=== PATIENT | female | born 1955 | race Caucasian/White ===

== ENCOUNTER 2016-09-18 19:58 | Inpatient (IN) | payer OTHER ==
[~2016-09-18] VITALS: Ht 162.6 cm; Wt 80.7 kg
--- NOTE | 2016-09-18 20:45 | ED ORDER SUMMARY ---
..... Patient: AYNELIS CUNNINGHAM OrderSheet [facility] VisitID: [id number] [place] [address] 61y, F Registration Date/Time: 09/18/2016 ORDER SHEET Weight: 74.8 kg (stated) Allergies: No Known Drug Allergy GENERAL ORDERS: CT Head wo Cont Urgent (20:14 09/18/2016 EKoroleva P.A.-C) (Ack 20:22 LMuller) (20:32 MCampbell) Humerus Right Urgent (20:15 09/18/2016 EKoroleva P.A.-C) (Ack 20:22 LMuller) (20:41 MCampbell) Cardiac Panel Stat (20:09/18/2016 EKoroleva P.A.-C) (Ack 20:22 LMuller) (20:48 JRomanelli R.N.) PT with INR Urgent (20:15 09/18/2016 EKoroleva P.A.-C) (Ack 20:22 LMuller) (20:48 JRomanelli R.N.) PTT Urgent (20:15 09/18/2016 EKoroleva P.A.-C) (Ack 20:22 LMuller) (20:48 JRomanelli R.N.) Ethyl Alcohol Urgent (20:15 09/18/2016 EKoroleva P.A.-C) (Ack 20:22 LMuller) (20:48 JRomanelli R.N.) Urine Drug Screen Urgent (20:15 09/18/2016 EKoroleva P.A.-C) (Ack 20:22 LMuller) (21:05 LMuller) Switch Cleaner (Continuous) (20:15 09/18/2016 EKoroleva P.A.-C) (Ack 20:22 LMuller) (20:48 JRomanelli R.N.) EKG - ER Stat (20:15 09/18/2016 EKoroleva P.A.-C) (Ack 20:22 LMuller) (20:48 JRomanelli R.N.) Splint (UE) (Right) (Long Arm) (21:01 09/18/2016 EKoroleva P.A.-C) (Ack 21:05 LMuller) (21:34 Madhavi) UA-Culture if indicated Urgent (21:14 09/18/2016 EKoroleva P.A.-C) (21:19 JRomanelli R.N.) MEDICATION ORDERS: Tylenol PO 1,000 mg (NOW) (22:18 09/18/2016 EKoroleva P.A.-C) (Ack 22:42 RCollier R.N.) (22:43 RCollier R.N.) IV FLUIDS: IV Saline Lock (20:15 09/18/2016 EKoroleva P.A.-C) (20:27 JRomanelli R.N.) Fentanyl IV 100 mcg (HIGH ALERT MEDICATION, NOW) (20:40 09/18/2016 EKoroleva P.A.-C) (21:37 JRomanelli R.N.) IV NS : initial bolus 1000 mL (1000 mL/hr), then 100 mL/hr for X1 (NOW); Kris (21:14 09/18/2016 EKoroleva P.A.-C) (21:20 JRomanelli R.N.) ORDER SHEET NOTES: [Electronically signed by Ana TaoANahun-C (22:23 09/18/2016)] [Electronically signed by Araeclis Helm R.N. (23:06 09/18/2016)] [Electronically locked/signed by Aracelis Helm R.N. (23:06 09/18/2016)]
--- NOTE | 2016-09-18 20:45 | ED CLINICAL REPORT ---
Clinical Report - Physicians/Mid Levels [facility] [address] [place] [address] 09/18/2016 20:01 Patient: YANELIS CUNNINGHAM Time Seen: 20:19 Sep 18 2016. Arrived- By ambulance. Historian- EMS personnel. HISTORY OF PRESENT ILLNESS Location of injuries- right arm. Chief Complaint: FALL. The injury occurred just prior to arrival. Occurred at home. The patient complains of mild pain. No blow to the head, neck pain or loss of consciousness. (Patient unsure how she fell, reports folding clothes, then does not understand any of the events that transpired. Pains of the right upper extremity. Unsure of any LOC. Reports she did not fall, was folding laundry, she has chronic neck pain and this caused her to fall.). REVIEW OF SYSTEMS No chest pain or laceration. She has no pain on weight bearing. All systems otherwise negative, except as recorded above. PAST HISTORY Problems: Abnormal Liver Function Test. Contusion. Substance Abuse. Hypokalemia. Sinusitis. Rib Fracture. Fall. Foot Fracture. Near Syncope. Arthritis. Gastroenteritis. Bronchitis. Bronchospasm. Dysuria. Palpitations. Psychosis. LNMP - Last Normal Menstrual Period. Anxiety Reaction. Dyspnea. Heart Murmur. Sleep Apnea. Hypertension. Fibromyalgia. Diabetes Mellitus. Additional Surgeries: Knee Surgery. Sinus Surgery. Medications: Ibuprofen Oral. MetFORMIN HCl Oral 500 mg, 2x a day. Allergies: No Known Drug Allergy. SOCIAL HISTORY Heavy alcohol use. (odor present in ER). ADDITIONAL NOTES The nursing notes have been reviewed. PHYSICAL EXAM Vital Signs: 09/18/2016 20:03 BP: 124/73. HR: 117. RR: 16. O2 saturation: 95%. Temp: 98.8 F. Pain level now: 9/10. Appearance: Alert. No acute distress. No backboard or C-collar. Eyes: Pupils equal, round and reactive to light. No abnormal funduscopic findings. ENT: No dental injury. No hemotympanum. Neck: Painless ROM. Non-tender. No vertebral tenderness. Posterior neck: No tenderness. CVS: Heart sounds normal. Pulses normal. Respiratory: Chest wall. No tenderness. No swelling. Breath sounds normal. Chest nontender. No chest wall injury. Abdomen: No visible injury. Nontender. No mass. No abdominal tenderness. Back: No tenderness. ROM normal. No tenderness. Skin: Skin warm. Extremities: Normal inspection. No abrasions. Right arm: deformity consistent with a humerus fracture, moderate tenderness and swelling and medium sized ecchymosis located in the lateral aspect of arm. Neurovascular intact distally. No laceration, puncture wound or foreign body. Pelvis stable. Neuro: Altered mental status. Eyes open spontaneously. Best verbal response: disoriented. Best motor response: localizes to pain. LABS, X-RAYS, AND EKG Rt Humerus X-ray: (IMPRESSION: 1. Impacted, minimally comminuted, displaced mid to distal humeral diaphyseal fracture. 2. Nondisplaced oblique transverse proximal humeral diaphyseal fracture. 3. Probable punctate fracture of the elbow adjacent to the coronoid process. 4. No dislocation. Electronically Final signed by:Nay Dallas MD 09/18/2016 9:48:44 PM). CT Head: (IMPRESSION: 1. No CT evidence of acute intracranial process. 2. Findings discussed with Dinh at [address] scans at this facility use dose modulation, iterative reconstruction, and/or weight-based dosing when appropriate to reduce radiation dose to as low as reasonably achievable. Electronically Final signed by:Nay Dallas MD 09/18/2016 9:44:46 PM). Laboratory Tests: UA-Culture if indicated: (YUNG: 09/18/2016 20:55) ( MsgRcvd 09/18/2016 21:29) Final results Test Result Flag Units (Reference) URINE COLOR YELLOW URINE APPEARANCE CLEAR URINE GLUCOSE NEGATIVE (NEGATIVE) URINE BILIRUBIN NEGATIVE (NEGATIVE) URINE KETONE NEGATIVE (NEGATIVE) URINE SPECIFIC GRAVITY >= 1.030 (1.010-1.030) URINE PH 5.5 (5.0-8.0) URINE PROTEIN 1+ (NEGATIVE) URINE UROBILINOGEN 0.2 EU/dL (0.2-1.0) URINE NITRITE NEGATIVE (NEGATIVE) URINE BLOOD 2+ (NEGATIVE) URINE LEUK ESTERASE NEGATIVE (NEGATIVE) URINE RBC NONE SEEN rbc/hpf (0-1) URINE WBC 0-1 wbc/hpf (0-1) URINE EPITHELIAL CELLS 0-1 EPI/hpf (0-5) URINE BACTERIA NONE SEEN (NONE SEEN) URINE COMMENT CULT NOT INDICATED 1+ AMORPHOUSURINE CULTURES ARE SET-UP BASED ON THE FOLLOWING CRITERIA:POSITIVE NITRITEPOSITIVE LEUKOCYTE ESTERASEGREATER THAN 10 WHITE BLOOD CELLSMODERATE (2+) OR GREATER BACTERIA CBC w Diff: (YUNG: 09/18/2016 20:35) ( [facility] 09/18/2016 21:13) Final results Test Result Flag Units (Reference) WHITE BLOOD COUNT 17.3 H K/uL (4.5-11.5) RED BLOOD COUNT 3.66 L M/uL (4.00-5.20) HEMOGLOBIN 11.2 L gm/dL (12.0-16.0) HEMATOCRIT 33.1 L % (36.0-46.0) MEAN CELL VOLUME 90 fL (80-100) MEAN CORPUSCULAR HGB 31 pg (26-34) MEAN CORPUSCULAR HGB CONC 34 g/dL (31-37) RED CELL DISTRIBUTION WIDTH 13.0 % (11.6-14.8) PLATELET COUNT 294 K/uL (150-400) NEUTROPHIL % 89.9 H % (50-75) LYMPH % 5.5 L % (25-40) MONO % 4.5 % (3-14) EOSINOPHIL % 0 % (0-4) BASOPHIL % 0.1 % (0-2) PT with INR: (YUNG: 09/18/2016 20:35) ( [facility] 09/18/2016 21:24) Final results Test Result Flag Units (Reference) INR 0.9 (0.8-1.2) Low Intensity Therapy: INR 1.5-2.0 PT range 18.5-23.1Mod.Intensity Therapy: INR 2.0-3.0 PT range 23.1-31.5High Intensity Therapy: INR 2.5-3.5 PT range 27.4-35.5High Intensity Therapy 2: INR 3.0-4.0 PT range 31.5-39.3 APTT 21 L SECONDS (24-34) Urine Drug Screen: (YUNG: 09/18/2016 20:55) ( ScgRcvd 09/18/2016 21:31) Final results Test Result Flag Units (Reference) AMPHETAMINE/METHAMPHETAMINE NEGATIVE (NEGATIVE) BARBITURATE NEGATIVE (NEGATIVE) BENZODIAZEPINE NEGATIVE (NEGATIVE) CANNABINOID POSITIVE H (NEGATIVE) COCAINE NEGATIVE (NEGATIVE) ECSTASY NEGATIVE (NEGATIVE) METHADONE NEGATIVE (NEGATIVE) OPIATE NEGATIVE (NEGATIVE) The urine drug screen is a qualitative screening test fordrug overdose and abuse. All screen results should beconsidered as presumptive.Drugs screened for are as follows:BenzodiazepinesCocaineAmphetamines/MetamphetaminesTHC (Tetrahydrocannabinol)OpiatesBarbituratesEcstasyMethadonePositive results are unconfirmed. For confirmation, notifythe lab for the specimen to be sent to the reference lab.All confirmations must be performed by a differentmethodology.The ingestion of natural herbal and plant productscontaining Ephedra/Ephedra metabolites can produce in urineone or more substances capable of cross reacting withamphetamine/methamphetamine immunoassays. These testsprovide a preliminary result only. A more specificalternative chemical method must be used to obtain aconfirmed analytical result. Ethyl Alcohol: (YUNG: 09/18/2016 20:35) ( [facility] Final results Test Result Flag Units (Reference) ETHYL ALCOHOL 186 H mg/dL (3-10) CHEM 13 PANEL: (YUNG: 09/18/2016 20:35) ( ScgRcvd 09/18/2016 21:38) Final results Test Result Flag Units (Reference) GLUCOSE 171 H mg/dL (70-110) BUN 21 H mg/dL (7-18) CREATININE 0.7 mg/dL (0.6-1.3) Estimated GFR >60 mL/min Estimated GFR- >60 mL/min Note: Persistent reduction over 3 months in eGFR<60 mL/min/1.73 m2 defines CKD. Patients with eGFR values>=60 mL/min/1.73 m2 may also have CKD if evidence ofpersistent proteinuria. Additional information may be foundat www.kidney.org. SODIUM 136 mmol/L (136-145) POTASSIUM 3.8 mmol/L (3.5-5.1) CHLORIDE 100 mmol/L (98-107) CARBON DIOXIDE 22 mmol/L (21-32) CALCIUM 9.1 mg/dL (8.5-10.1) TOTAL PROTEIN 7.0 g/dL (6.4-8.2) ALBUMIN 4.1 g/dL (3.3-5.0) BILIRUBIN, TOTAL 0.2 mg/dL (0.0-1.0) ALKALINE PHOSPHATASE 66 U/L (46-116) AST (SGOT) 31 U/L (15-37) ALT (SGPT) 36 U/L (12-78) CPK 482 H U/L (24-260) MAGNESIUM 1.7 L mg/dL (1.8-2.4) CK-MB 13.3 H ng/mL (0.5-3.2) %CKMB 2.8 % (0.0-4.0) TROPONIN I <0.05 ng/mL (0.00-1.5) TROPONIN REFERENCE RANGE:<0.1 NEGATIVE0.1-1.5 INDETERMINANT>1.5 POSITIVE . PROGRESS AND PROCEDURES Splint Application: Time: 22:21 Sep 18 2016. Fiberglass long arm splint applied to right upper extremity. Splint applied by tech with direct supervision by me. Reassessed extremity following splint application. Neurovascular intact. Follow-up recommended for tomorrow. Course of Care: Patient is unclear how her injury occurred. She is intoxicated. In fact she denies any fall. She has been told multiple times that she has a broken arm in the emergency department, her on mature she comprehensive nature of such. No other signs of trauma. Case was discussed with orthopedics, who will see her in the emergency Department. Orthopedics , Dr. Hutchins requested medical consult, given her diabetes and hypertension history, we'll obtain social Dr. Conn him, also in the emergency department to see the patient. She spiked a fever in the emergency department, given Tylenol. Signs of leukocytosis, no otherwise clear sign of cause of her fever. 09/18/2016 22:00 BP: 129/77. HR: 108. RR: 16. O2 saturation: 94%. Temp: 101.6 F. Pain level now: 02/18. Patient is stable. Symptoms better. Patient/family counseled. Disposition: Admitted. CLINICAL IMPRESSION R. Closed Displaced Mid Shaft Humerus Fx ETOH DM 2 Fever. (Electronically signed by Ana Tao P.A.-C 09/18/2016 22:23) Addenda for YANELIS CUNNINGHAM VisitID: [id number] Date: 09/18/2016 09/18/2016 22:25 EKG: Vent rate 108 Pr interval [address] changes or elevation Sinus Tach (Electronically signed by Ana Tao P.A.-C - 09/18/2016 22:25)
--- NOTE | 2016-09-18 20:45 | ED ORDER SUMMARY ---
..... Patient: YANELIS CUNNINGHAM OrderSheet [facility] VisitID: [id number] [place] [address] 61y, F Registration Date/Time: 09/18/2016 ORDER SHEET Weight: 74.8 kg (stated) Allergies: No Known Drug Allergy GENERAL ORDERS: CT Head wo Cont Urgent (20:14 09/18/2016 EKoroleva P.A.-C) (Ack 20:22 LMuller) (20:32 MCampbell) Humerus Right Urgent (20:15 09/18/2016 EKoroleva P.A.-C) (Ack 20:22 LMuller) (20:41 MCampbell) Cardiac Panel Stat (20:09/18/2016 EKoroleva P.A.-C) (Ack 20:22 LMuller) (20:48 JRomanelli R.N.) PT with INR Urgent (20:15 09/18/2016 EKoroleva P.A.-C) (Ack 20:22 LMuller) (20:48 JRomanelli R.N.) PTT Urgent (20:15 09/18/2016 EKoroleva P.A.-C) (Ack 20:22 LMuller) (20:48 JRomanelli R.N.) Ethyl Alcohol Urgent (20:15 09/18/2016 EKoroleva P.A.-C) (Ack 20:22 LMuller) (20:48 JRomanelli R.N.) Urine Drug Screen Urgent (20:15 09/18/2016 EKoroleva P.A.-C) (Ack 20:22 LMuller) (21:05 LMuller) Mobile Health Vehicle Operator (Continuous) (20:15 09/18/2016 EKoroleva P.A.-C) (Ack 20:22 LMuller) (20:48 JRomanelli R.N.) EKG - ER Stat (20:15 09/18/2016 EKoroleva P.A.-C) (Ack 20:22 LMuller) (20:48 JRomanelli R.N.) Splint (UE) (Right) (Long Arm) (21:01 09/18/2016 EKoroleva P.A.-C) (Ack 21:05 LMuller) (21:34 Madhavi) UA-Culture if indicated Urgent (21:14 09/18/2016 EKoroleva P.A.-C) (21:19 JRomanelli R.N.) MEDICATION ORDERS: Tylenol PO 1,000 mg (NOW) (22:18 09/18/2016 EKoroleva P.A.-C) (Ack 22:42 RCollier R.N.) (22:43 RCollier R.N.) IV FLUIDS: IV Saline Lock (20:15 09/18/2016 EKoroleva P.A.-C) (20:27 JRomanelli R.N.) Fentanyl IV 100 mcg (HIGH ALERT MEDICATION, NOW) (20:40 09/18/2016 EKoroleva P.A.-C) (21:37 JRomanelli R.N.) IV NS : initial bolus 1000 mL (1000 mL/hr), then 100 mL/hr for X1 (NOW); Kris (21:14 09/18/2016 EKoroleva P.A.-C) (21:20 JRomanelli R.N.) ORDER SHEET NOTES: [Electronically signed by Ana TaoANahun-C (22:23 09/18/2016)] [Electronically signed by Aracelis Helm R.N. (23:06 09/18/2016)] [Electronically locked/signed by Aracelis Helm R.N. (23:06 09/18/2016)]
--- NOTE | 2016-09-18 20:45 | ED CLINICAL REPORT ---
Clinical Report - Physicians/Mid Levels [facility] [address] [place] [address] 09/18/2016 20:01 Patient: YANELIS CUNNINGHAM Time Seen: 20:19 Sep 18 2016. Arrived- By ambulance. Historian- EMS personnel. HISTORY OF PRESENT ILLNESS Location of injuries- right arm. Chief Complaint: FALL. The injury occurred just prior to arrival. Occurred at home. The patient complains of mild pain. No blow to the head, neck pain or loss of consciousness. (Patient unsure how she fell, reports folding clothes, then does not understand any of the events that transpired. Pains of the right upper extremity. Unsure of any LOC. Reports she did not fall, was folding laundry, she has chronic neck pain and this caused her to fall.). REVIEW OF SYSTEMS No chest pain or laceration. She has no pain on weight bearing. All systems otherwise negative, except as recorded above. PAST HISTORY Problems: Abnormal Liver Function Test. Contusion. Substance Abuse. Hypokalemia. Sinusitis. Rib Fracture. Fall. Foot Fracture. Near Syncope. Arthritis. Gastroenteritis. Bronchitis. Bronchospasm. Dysuria. Palpitations. Psychosis. LNMP - Last Normal Menstrual Period. Anxiety Reaction. Dyspnea. Heart Murmur. Sleep Apnea. Hypertension. Fibromyalgia. Diabetes Mellitus. Additional Surgeries: Knee Surgery. Sinus Surgery. Medications: Ibuprofen Oral. MetFORMIN HCl Oral 500 mg, 2x a day. Allergies: No Known Drug Allergy. SOCIAL HISTORY Heavy alcohol use. (odor present in ER). ADDITIONAL NOTES The nursing notes have been reviewed. PHYSICAL EXAM Vital Signs: 09/18/2016 20:03 BP: 124/73. HR: 117. RR: 16. O2 saturation: 95%. Temp: 98.8 F. Pain level now: 9/10. Appearance: Alert. No acute distress. No backboard or C-collar. Eyes: Pupils equal, round and reactive to light. No abnormal funduscopic findings. ENT: No dental injury. No hemotympanum. Neck: Painless ROM. Non-tender. No vertebral tenderness. Posterior neck: No tenderness. CVS: Heart sounds normal. Pulses normal. Respiratory: Chest wall. No tenderness. No swelling. Breath sounds normal. Chest nontender. No chest wall injury. Abdomen: No visible injury. Nontender. No mass. No abdominal tenderness. Back: No tenderness. ROM normal. No tenderness. Skin: Skin warm. Extremities: Normal inspection. No abrasions. Right arm: deformity consistent with a humerus fracture, moderate tenderness and swelling and medium sized ecchymosis located in the lateral aspect of arm. Neurovascular intact distally. No laceration, puncture wound or foreign body. Pelvis stable. Neuro: Altered mental status. Eyes open spontaneously. Best verbal response: disoriented. Best motor response: localizes to pain. LABS, X-RAYS, AND EKG Rt Humerus X-ray: (IMPRESSION: 1. Impacted, minimally comminuted, displaced mid to distal humeral diaphyseal fracture. 2. Nondisplaced oblique transverse proximal humeral diaphyseal fracture. 3. Probable punctate fracture of the elbow adjacent to the coronoid process. 4. No dislocation. Electronically Final signed by:Nay Dallas MD 09/18/2016 9:48:44 PM). CT Head: (IMPRESSION: 1. No CT evidence of acute intracranial process. 2. Findings discussed with Dinh at [address] scans at this facility use dose modulation, iterative reconstruction, and/or weight-based dosing when appropriate to reduce radiation dose to as low as reasonably achievable. Electronically Final signed by:Nay Dallas MD 09/18/2016 9:44:46 PM). Laboratory Tests: UA-Culture if indicated: (YUNG: 09/18/2016 20:55) ( MsgRcvd 09/18/2016 21:29) Final results Test Result Flag Units (Reference) URINE COLOR YELLOW URINE APPEARANCE CLEAR URINE GLUCOSE NEGATIVE (NEGATIVE) URINE BILIRUBIN NEGATIVE (NEGATIVE) URINE KETONE NEGATIVE (NEGATIVE) URINE SPECIFIC GRAVITY >= 1.030 (1.010-1.030) URINE PH 5.5 (5.0-8.0) URINE PROTEIN 1+ (NEGATIVE) URINE UROBILINOGEN 0.2 EU/dL (0.2-1.0) URINE NITRITE NEGATIVE (NEGATIVE) URINE BLOOD 2+ (NEGATIVE) URINE LEUK ESTERASE NEGATIVE (NEGATIVE) URINE RBC NONE SEEN rbc/hpf (0-1) URINE WBC 0-1 wbc/hpf (0-1) URINE EPITHELIAL CELLS 0-1 EPI/hpf (0-5) URINE BACTERIA NONE SEEN (NONE SEEN) URINE COMMENT CULT NOT INDICATED 1+ AMORPHOUSURINE CULTURES ARE SET-UP BASED ON THE FOLLOWING CRITERIA:POSITIVE NITRITEPOSITIVE LEUKOCYTE ESTERASEGREATER THAN 10 WHITE BLOOD CELLSMODERATE (2+) OR GREATER BACTERIA CBC w Diff: (YUNG: 09/18/2016 20:35) ( [facility] 09/18/2016 21:13) Final results Test Result Flag Units (Reference) WHITE BLOOD COUNT 17.3 H K/uL (4.5-11.5) RED BLOOD COUNT 3.66 L M/uL (4.00-5.20) HEMOGLOBIN 11.2 L gm/dL (12.0-16.0) HEMATOCRIT 33.1 L % (36.0-46.0) MEAN CELL VOLUME 90 fL (80-100) MEAN CORPUSCULAR HGB 31 pg (26-34) MEAN CORPUSCULAR HGB CONC 34 g/dL (31-37) RED CELL DISTRIBUTION WIDTH 13.0 % (11.6-14.8) PLATELET COUNT 294 K/uL (150-400) NEUTROPHIL % 89.9 H % (50-75) LYMPH % 5.5 L % (25-40) MONO % 4.5 % (3-14) EOSINOPHIL % 0 % (0-4) BASOPHIL % 0.1 % (0-2) PT with INR: (YUNG: 09/18/2016 20:35) ( [facility] 09/18/2016 21:24) Final results Test Result Flag Units (Reference) INR 0.9 (0.8-1.2) Low Intensity Therapy: INR 1.5-2.0 PT range 18.5-23.1Mod.Intensity Therapy: INR 2.0-3.0 PT range 23.1-31.5High Intensity Therapy: INR 2.5-3.5 PT range 27.4-35.5High Intensity Therapy 2: INR 3.0-4.0 PT range 31.5-39.3 APTT 21 L SECONDS (24-34) Urine Drug Screen: (YUNG: 09/18/2016 20:55) ( [facility] 09/18/2016 21:31) Final results Test Result Flag Units (Reference) AMPHETAMINE/METHAMPHETAMINE NEGATIVE (NEGATIVE) BARBITURATE NEGATIVE (NEGATIVE) BENZODIAZEPINE NEGATIVE (NEGATIVE) CANNABINOID POSITIVE H (NEGATIVE) COCAINE NEGATIVE (NEGATIVE) ECSTASY NEGATIVE (NEGATIVE) METHADONE NEGATIVE (NEGATIVE) OPIATE NEGATIVE (NEGATIVE) The urine drug screen is a qualitative screening test fordrug overdose and abuse. All screen results should beconsidered as presumptive.Drugs screened for are as follows:BenzodiazepinesCocaineAmphetamines/MetamphetaminesTHC (Tetrahydrocannabinol)OpiatesBarbituratesEcstasyMethadonePositive results are unconfirmed. For confirmation, notifythe lab for the specimen to be sent to the reference lab.All confirmations must be performed by a differentmethodology.The ingestion of natural herbal and plant productscontaining Ephedra/Ephedra metabolites can produce in urineone or more substances capable of cross reacting withamphetamine/methamphetamine immunoassays. These testsprovide a preliminary result only. A more specificalternative chemical method must be used to obtain aconfirmed analytical result. Ethyl Alcohol: (YUNG: 09/18/2016 20:35) ( [facility] Final results Test Result Flag Units (Reference) ETHYL ALCOHOL 186 H mg/dL (3-10) CHEM 13 PANEL: (YUNG: 09/18/2016 20:35) ( Tx[facility]cv[facility] 09/18/2016 21:38) Final results Test Result Flag Units (Reference) GLUCOSE 171 H mg/dL (70-110) BUN 21 H mg/dL (7-18) CREATININE 0.7 mg/dL (0.6-1.3) Estimated GFR >60 mL/min Estimated GFR- >60 mL/min Note: Persistent reduction over 3 months in eGFR<60 mL/min/1.73 m2 defines CKD. Patients with eGFR values>=60 mL/min/1.73 m2 may also have CKD if evidence ofpersistent proteinuria. Additional information may be foundat www.kidney.org. SODIUM 136 mmol/L (136-145) POTASSIUM 3.8 mmol/L (3.5-5.1) CHLORIDE 100 mmol/L (98-107) CARBON DIOXIDE 22 mmol/L (21-32) CALCIUM 9.1 mg/dL (8.5-10.1) TOTAL PROTEIN 7.0 g/dL (6.4-8.2) ALBUMIN 4.1 g/dL (3.3-5.0) BILIRUBIN, TOTAL 0.2 mg/dL (0.0-1.0) ALKALINE PHOSPHATASE 66 U/L (46-116) AST (SGOT) 31 U/L (15-37) ALT (SGPT) 36 U/L (12-78) CPK 482 H U/L (24-260) MAGNESIUM 1.7 L mg/dL (1.8-2.4) CK-MB 13.3 H ng/mL (0.5-3.2) %CKMB 2.8 % (0.0-4.0) TROPONIN I <0.05 ng/mL (0.00-1.5) TROPONIN REFERENCE RANGE:<0.1 NEGATIVE0.1-1.5 INDETERMINANT>1.5 POSITIVE . PROGRESS AND PROCEDURES Splint Application: Time: 22:21 Sep 18 2016. Fiberglass long arm splint applied to right upper extremity. Splint applied by tech with direct supervision by me. Reassessed extremity following splint application. Neurovascular intact. Follow-up recommended for tomorrow. Course of Care: Patient is unclear how her injury occurred. She is intoxicated. In fact she denies any fall. She has been told multiple times that she has a broken arm in the emergency department, her on mature she comprehensive nature of such. No other signs of trauma. Case was discussed with orthopedics, who will see her in the emergency Department. Orthopedics , Dr. Hutchins requested medical consult, given her diabetes and hypertension history, we'll obtain social Dr. Conn him, also in the emergency department to see the patient. She spiked a fever in the emergency department, given Tylenol. Signs of leukocytosis, no otherwise clear sign of cause of her fever. 09/18/2016 22:00 BP: 129/77. HR: 108. RR: 16. O2 saturation: 94%. Temp: 101.6 F. Pain level now: 02/18. Patient is stable. Symptoms better. Patient/family counseled. Disposition: Admitted. CLINICAL IMPRESSION R. Closed Displaced Mid Shaft Humerus Fx ETOH DM 2 Fever. (Electronically signed by Ana Tao P.A.-C 09/18/2016 22:23) Addenda for YANELIS CUNNINGHAM VisitID: [id number] Date: 09/18/2016 09/18/2016 22:25 EKG: Vent rate 108 Pr interval [address] changes or elevation Sinus Tach (Electronically signed by Ana Tao P.A.-C - 09/18/2016 22:25)
--- NOTE | 2016-09-18 20:45 | ED NURSING NOTES ---
Clinical Report - Nurses [facility] [place] [address] 09/18/2016 20:01 Patient: YANELIS CUNNINGHAM [facility]#: [id number] TRIAGE Triage time 20:00 Sep 18 2016. Acuity: LEVEL 3. Chief Complaint: INJURY TO THE RIGHT ARM. Alert. YVONNE COMA SCORE: [place] Coma Scale: 15- eyes open spontaneously (4); best verbal response- oriented x 4 (5); best motor response- obeys commands (6). --20:15 Doug Rowan R.N. 20:03 09/18/16. BP: 124/73. HR: 117. RR: 16. O2 saturation: 95%. Temp: 98.8 F (oral). Pain level now: 9/10. Additional comments: (R) Upper Arm. --20:15 Doug Rowan R.N. Weight: 74.8 kg stated. Height/Length: 64 inches Per Patient. BMI: 28.3. --20:06 Doug Rowan R.N. Medications Ibuprofen Oral. MetFORMIN HCl Oral 500 mg, 2x a day. --20:10 Doug Rowan R.N. Allergies No Known Drug Allergy. --20:10 Doug Rowan R.N. Medication/allergy information source: the patient. --20:15 Doug Rowan R.N. History Arrived by EMS. Historian: patient. Unaccompanied. Primary physician (Tiffany Etienne). ( GLF falling upstairs and hitting her RUE). This occurred (about 1 hour ago). Mechanism of injury: fell. She has had neck pain and weakness of the right arm. 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 PAST MEDICAL HX: Tetanus status: unknown. Immunizations: status is unknown. SOCIAL HX: Light tobacco smoker (cigarette)- less than 1/2 a pack per day. Alcohol use; consumes two liquor occasionally. No drug use. No infectious disease exposure. ABUSE ASSESSMENT: No report of abuse. FALL RISK ASSESSMENT: Fall risk assessment completed. No fall risk identified. NUTRITIONAL RISK ASSESSMENT: The nutritional risk assessment revealed no deficiencies. FUNCTIONAL ASSESSMENT: Functional assessment: no impairments noted. LEARNING NEEDS ASSESSMENT: The learning needs assessment revealed no barriers. SKIN INTEGRITY ASSESSMENT: Skin integrity risk assessment completed. No skin integrity risk identified. --20:15 Doug Rowan R.N. PROBLEMS: Abnormal Liver Function Test. Contusion. Substance Abuse. Hypokalemia. Sinusitis. Rib Fracture. Fall. Foot Fracture. Near Syncope. Dental Caries. Arthritis. Gastroenteritis. Bronchitis. Bronchospasm. Dysuria. Palpitations. Psychosis. LNMP - Last Normal Menstrual Period. Anxiety Reaction. Dyspnea. Heart Murmur. Sleep Apnea. Hypertension. Fibromyalgia. Diabetes Mellitus. --20:12 Doug Rowan R.N. Abdominal Pain [RuleOut]. UTI - Urinary Tract Infection [RuleOut]. --20:12 Doug Rowan R.N. ADDITIONAL SURGERIES: Knee Surgery. Sinus Surgery. --20:12 Doug Rowan R.N. Interventions ID band on patient. To treatment room. --20:15 Doug Rowan R.N. PHYSICAL ASSESSMENT Ambulatory to room. GENERAL / NEURO / PSYCH: Oriented X 4. Alert. EXTREMITIES: Limited ROM present in the right upper arm. Capillary refill is less than 2 seconds in the extremities. Extremity pulses are within normal limits. Right arm: tenderness (painful). SKIN: Skin intact. Skin is warm and dry. --20:16 Doug Rowan R.N. SKIN: ( Bruise lateral (R) leg below the knee). --20:17 Doug Rowan R.N. NURSING PROGRESS NOTES 20:02 09/18/2016 Site #1 started prior to arrival by EMS via IV in the left with an 20g angiocath. --20:27 Doug Rowan R.N. 20:20 09/18/16. Patient transported to radiology and CT by stretcher with tech. --20:26 Doug Rowan R.N. 20:40 09/18/16. Patient ID band checked for patient name, birthdate and medical record number: patient confirmed. Blood samples drawn from the left forearm peripheral IV site by nurse ; labeled in presence of the patient and sent to lab: rainbow set. Line flushed with 10 mL normal saline post blood draw. --20:46 Doug Rowan R.N. 20:15. Cold pack applied. Reassurance given. Patient identifiers checked. Call light placed in reach. Side rails up x 1. Bed placed in lowest position. Brakes of bed on. Patient ready for evaluation- chart flagged and ED physician notified. --20:47 Doug Rowan R.N. EKG time: (2040 PM). EKG was ordered, performed by a tech and shown to the PA. --20:50 María Lanier ( 2044: Breathalyzer .167). --20:53 María Lanier 21:20 09/18/2016 Started bag #1 1000 mL IV Fluids IV NS (Saline); at 1000 mL/hr over 60 minute(s) via site #1 via IV pump. Allergies verified and confirmed 5 rights. IV patency established. IV site checked: no pain, redness, or swelling. IV flushed thoroughly pre- and post-medication administration. --21:20 Doug Rowan R.N. 21:25 09/18/16. ( Splint placed on RUE by Dr. Hutchins). --21:32 Doug Rowan R.N. 21:27 09/18/2016 Fentanyl IVP 50 mcg given over 2 minute(s) via site #1. Allergies verified, confirmed 5 rights and sedative warning given. IV patency established. IV site checked: no pain, redness, or swelling. IV flushed thoroughly pre- and post-medication administration. IVP given by RN. --21:37 Doug Rowan R.N. 21:38 09/18/2016 Fentanyl IVP 50 mcg given over 2 minute(s) via site #1. Allergies verified, confirmed 5 rights and sedative warning given. IV patency established. IV site checked: no pain, redness, or swelling. IV flushed thoroughly pre- and post-medication administration. IVP given by RN. --21:38 Doug Rowan R.N. 21:00 09/18/16. BP: 127/87. HR: 105. RR: 16. O2 saturation: 96% on room air. Pain level now: 8/10. Additional comments: RUE pain. --22:09 Doug Rowan R.N. 22:00 09/18/16. BP: 129/77. HR: 108. RR: 16. O2 saturation: 94% on room air. Temp: 101.6 F. Pain level now: 02/18. Additional comments: RUE pain. --22:16 Doug Rowan R.N. 22:10 09/18/16. ( Up to BSC and voided ~ 100cc.). --22:16 Doug Rowan R.N. 22:37 09/18/16. BP: 115/55. HR: 118. RR: 15. O2 saturation: 97%. Pain level now: 03/20. --22:39 Sary Barnhart R.N. 22:30 09/18/2016 Tylenol (Acetaminophen) PO Tablets 1000 mg given. Allergies verified and confirmed 5 rights. (given by Doug Urban, RN). --22:43 Rebekah Ramos R.N. DISPOSITION / DISCHARGE Report was given to a nurse via a phone call. Report included patient's care, treatment, medications, reviewed medication reconcilliation, and condition (including any recent changes or anticipated changes). All questions were answered. Report was acknowledged and care was transferred. --22:49 Amaya Jenkins Departure time: 23:03. FALL RISK ASSESSMENT: Fall risk assessment completed. No fall risk identified. --23:03 Amaya Jenkins Transported via stretcher by transport team. --23:03 Amaya Jenkins 23:05 09/18/16. BP: deferred. HR: deferred. RR: deferred. O2 saturation: deferred. Temp: deferred. Pain level now deferred. --23:05 Amaya Jenkins Locked/Released at 09/18/2016 23:06 by Amaya Jenkins
--- NOTE | 2016-09-18 21:43 | Progress Note ---
Subjective General Closed fracture right humerus. Patient is intoxicated and does not know what happened to herself. She thinks she has DM and HTN and is on Metformin only. She is admitted for repair of the right humeral fracture and detoxification/BS control.
--- NOTE | 2016-09-18 21:44 | DIAGNOSTIC IMAGING REPORT ---
PROCEDURE: CT HEAD WITHOUT CONTRAST INDICATION: MENTAL STATUS CHANGE TECHNIQUE: Axial CT images were acquired through the head. Coronal and sagittal reformations were created. COMPARISON: None. FINDINGS: There is patient motion at the base of the brain. No intracranial hemorrhage or extraaxial fluid collections. Ventricles are normal in size, shape and position. There is no mass, mass effect or midline shift. The daugherty-white matter differentiation is normal. There is no edema. The calvarium is intact. Mild right maxillary sinus mucoperiosteal thickening. The paranasal sinuses and mastoid air cells are otherwise normally aerated. The extracranial soft tissues and orbits are normal. IMPRESSION: 1. No CT evidence of acute intracranial process. 2. Findings discussed with Dinh at [address] scans at this facility use dose modulation, iterative reconstruction, and/or weight-based dosing when appropriate to reduce radiation dose to as low as reasonably achievable.
--- NOTE | 2016-09-18 21:48 | DIAGNOSTIC IMAGING REPORT ---
PROCEDURE: XR HUMERUS - RIGHT INDICATION: TRAUMA/INJURY TECHNIQUE: Two views of the right humerus COMPARISON: None. FINDINGS: Normal mineralization. There is a minimally comminuted, mainly oblique transverse fracture through the mid to distal right humerus with one a half full shaft width of posterior and lateral displacement, and about to 1/2 cm of impaction. There is also a nondisplaced oblique transverse fracture of the proximal humeral diaphysis. The elbow joint appears grossly normal alignment with a tiny ossification adjacent to the coronoid process, potentially an impaction fracture. The shoulder joint is also grossly normally aligned. No radiodense foreign bodies in the soft tissue. IMPRESSION: 1. Impacted, minimally comminuted, displaced mid to distal humeral diaphyseal fracture. 2. Nondisplaced oblique transverse proximal humeral diaphyseal fracture. 3. Probable punctate fracture of the elbow adjacent to the coronoid process. 4. No dislocation.
--- NOTE | 2016-09-18 23:07 | ED DISCHARGE INSTRUCTIONS ---
Patient: YANELIS CUNNINGHAM General Instructions [facility] VisitID: [id number] [address] [place] [address] 61y, F Registration Date/Time: 09/18/2016 R. Closed Displaced Mid Shaft Humerus Fx ETOH DM 2 Fever. (Electronically signed by Ana Tao P.A.-C 09/18/2016 22:23)
--- NOTE | 2016-09-18 23:07 | ED MAR SUMMARY ---
..... Medication Administration Record [facility] [address] [place] [address] Patient: YANELIS CUNNINGHAM Visit ID: [id number] 61y, F Weight: 74.8 kg Height/Length: 64 in BMI: 28.3 ALLERGIES: No Known Drug Allergy Start 21:20 09/18/2016 Doug Rowan R.N. Medication Administered: IV NS (SALINE), Dose: IV Fluids over 60 minute(s), Rate: 1000 mL/hr, Dispensed: 1000 mL bag, Site: #1 left. Medication Ordered: IV NS : initial bolus 1000 mL (1000 mL/hr), then 100 mL/hr for X1 (NOW); Kris. Given 21:27 09/18/2016 Doug Rowan R.N. Medication Administered: FENTANYL [IVP], Dose: 50 mcg IVP over 2 minute(s), Site: #1 left. Medication Ordered: Fentanyl IV 100 mcg (HIGH ALERT MEDICATION, NOW). Given 21:38 09/18/2016 Doug Rowan R.N. Medication Administered: FENTANYL [IVP], Dose: 50 mcg IVP over 2 minute(s), Site: #1 left. Medication Ordered: Fentanyl IV 100 mcg (HIGH ALERT MEDICATION, NOW). Given 22:30 09/18/2016 Rebekah Ramos R.N. Medication Administered: TYLENOL [PO] (ACETAMINOPHEN), Dose: 1000 mg Tablets PO. Medication Ordered: Tylenol PO 1,000 mg (NOW).
--- NOTE | 2016-09-18 23:07 | ED MAR SUMMARY ---
..... Medication Administration Record Located Within [facility] [address] [place] [address] Patient: YANELIS CUNNINGHAM Visit ID: [id number] 61y, F Weight: 74.8 kg Height/Length: 64 in BMI: 28.3 ALLERGIES: No Known Drug Allergy Start 21:20 09/18/2016 Doug Rowan R.N. Medication Administered: IV NS (SALINE), Dose: IV Fluids over 60 minute(s), Rate: 1000 mL/hr, Dispensed: 1000 mL bag, Site: #1 left. Medication Ordered: IV NS : initial bolus 1000 mL (1000 mL/hr), then 100 mL/hr for X1 (NOW); Kris. Given 21:27 09/18/2016 Doug Rowan R.N. Medication Administered: FENTANYL [IVP], Dose: 50 mcg IVP over 2 minute(s), Site: #1 left. Medication Ordered: Fentanyl IV 100 mcg (HIGH ALERT MEDICATION, NOW). Given 21:38 09/18/2016 Doug Rowan R.N. Medication Administered: FENTANYL [IVP], Dose: 50 mcg IVP over 2 minute(s), Site: #1 left. Medication Ordered: Fentanyl IV 100 mcg (HIGH ALERT MEDICATION, NOW). Given 22:30 09/18/2016 Rebekah Ramos R.N. Medication Administered: TYLENOL [PO] (ACETAMINOPHEN), Dose: 1000 mg Tablets PO. Medication Ordered: Tylenol PO 1,000 mg (NOW).
--- NOTE | 2016-09-18 23:07 | ED DISCHARGE INSTRUCTIONS ---
Patient: YANELIS CUNNINGHAM General Instructions Located Within [facility] VisitID: [id number] [address] [place] [address] 61y, F Registration Date/Time: 09/18/2016 R. Closed Displaced Mid Shaft Humerus Fx ETOH DM 2 Fever. (Electronically signed by Ana Tao P.A.-C 09/18/2016 22:23)
--- NOTE | 2016-09-18 23:07 | ED MED RECONCILIATION SUMMARY ---
Patient: YANELIS CUNNINGHAM Medication Reconciliation Report [facility] VisitID: [id number] [address] [place] [address] 61y, F Registration Date/Time: 09/18/2016 Weight: 74.8 kg Height/Length: 64 in. BMI: 28.3 ALLERGIES: No Known Drug Allergy The patient's Home Medications are listed below: THE FOLLOWING MEDICATIONS NEED TO BE RECONCILED: Ibuprofen Oral MetFORMIN HCl Oral 500 mg, 2x a day The source(s) of the original Home Medication information: patient The following Medications were given to the patient in the Emergency Department: IV NS IV Fluids bolus 0, then 1000 mL/hr, administered: 09/18/2016 9:20:00 PM Fentanyl [IVP] IVP 50 mcg, administered: 09/18/2016 9:27:00 PM Fentanyl [IVP] IVP 50 mcg, administered: 09/18/2016 9:38:00 PM Tylenol [PO] PO 1000 mg, administered: 09/18/2016 10:30:00 PM The following Medications were prescribed to the patient: None.
--- NOTE | 2016-09-18 23:07 | ED MED RECONCILIATION SUMMARY ---
Patient: YANELIS CUNNINGHAM Medication Reconciliation Report [facility] VisitID: [id number] [address] [place] [address] 61y, F Registration Date/Time: 09/18/2016 Weight: 74.8 kg Height/Length: 64 in. BMI: 28.3 ALLERGIES: No Known Drug Allergy The patient's Home Medications are listed below: THE FOLLOWING MEDICATIONS NEED TO BE RECONCILED: Ibuprofen Oral MetFORMIN HCl Oral 500 mg, 2x a day The source(s) of the original Home Medication information: patient The following Medications were given to the patient in the Emergency Department: IV NS IV Fluids bolus 0, then 1000 mL/hr, administered: 09/18/2016 9:20:00 PM Fentanyl [IVP] IVP 50 mcg, administered: 09/18/2016 9:27:00 PM Fentanyl [IVP] IVP 50 mcg, administered: 09/18/2016 9:38:00 PM Tylenol [PO] PO 1000 mg, administered: 09/18/2016 10:30:00 PM The following Medications were prescribed to the patient: None.
[2016-09-18 23:09] VITALS: BP 117/63
[2016-09-19] VITALS (13 sets, daily range): BP systolic 111–151; BP diastolic 57–99
--- NOTE | 2016-09-19 02:27 | NUR ---
PT. ARRIVED TO FLOOR AT APPROX 2300 AT SHIFT CHANGE, RECEIVED REPORT FROM ISAAC KEYS. ACCORDING TO REPORT, PT. WALKED FROM STRETCHER TO BED. WHEN THIS RN ASSESSED PT., PT. WAS SHOUTING IN PAIN EVERY TIME SHE MOVED IN BED. PT. IS INTOXICATED PER FAMILY, ANSWERING STAFF QUESTIONS BUT IS NOT ABLE TO FOCUS AND RAMBLES. BLOOD ETOH LEVEL IS HIGH PER LABS. PT HAS MULTIPLE BRUISES ON RAMAKRISHNA, AND MULTIPLE RED GARCIA ON SHINS BILAT. PT. STATES SHE FELL AT HOME. STATES, "THIS HAPPENS ALL THE TIME. I FALL ALL THE TIME." IS CURRENTLY A POOR HISTORIAN, WHILE COMPLETING ADMISSION DATABASE PT. STATES "I DONT REMEMBER" TO MANY QUESTIONS. PT. R ARM IS IN A SPLINT ON HER UPPER ARM AND EXTENDS TO ELBOW. ADMINISTERED DILAUDID PER DR PARIS, PT. STATES HER PAIN WENT FROM 10/10 TO 7/10. PT. BECAME VERY NAUSEOUS FROM PAIN AND VOMITED, BUT DENIES NAUSEA AT THIS TIME. NOTIFIED DR. SELLERS OF PAIN, PAIN MEDICATION FREQUENCY INCREASED. PT. UNABLE TO MOVE IN BED TO ALLOW FOR BED ROGER, AND WHILE WALKING TO TOILET EARLIER SHE BECAME EXTREMELY PAINFUL. PER DR SELLERS, OK TO INSERT LAZO CATHETER, SINCE PT. WILL BE HAVING SURGERY. ICE TO ARTI, ELEVATED ON PILLOW. WCTM.
--- NOTE | 2016-09-19 02:56 | HISTORY AND PHYSICAL ---
ADMITTED: 09/18/2016 CHIEF COMPLAINT: 1. Pain in the right upper arm area HISTORY OF PRESENT ILLNESS: The patient is a 61-year-old white female who fell at home this evening. She was involved with a sewing project and was trying to get this done fairly quickly. She had also been drinking some alcohol. She has some chronic neck problems as well and sometimes certain neck problems for one reason or other trigger balance difficulties. In any case, she fell and impacted on her right upper arm. She had severe pain and could not really move very well. She called 911 and was transferred into the hospital here in [place]. Evaluation in the emergency department revealed that she had quite high blood alcohol level at 186 mg percent. X-ray showed a transverse displaced fracture of the midshaft area of the humerus. Dr. Hutchins had seen the patient and had recommended surgery and admission for stabilization prior to surgery. MEDICAL/SURGICAL HISTORY: Past medical history: Remarkable for adult-onset diabetes, hyperlipidemia, hypertension, chronic neck pain, fibromyalgia, spells of weakness and balance difficulties, which have been related to her neck. She also was evaluated for sleep apnea issues in the past, but the decision was that she did not really have sleep apnea. Past surgical history is remarkable for left knee surgery and sinus surgery. She also has had childbirth x2. MEDICATIONS: 1. Metformin 500 mg twice daily. 2. She is also on a blood pressure medication of some type and it sounds like it may be either an CB inhibitor or an ARB. She cannot remember the name completely. She has been sensitive to statin medications and is not on a statin medication currently. ALLERGIES: 1. DENTAL ANESTHETICS, WHICH CAUSES QUITE PRONOUNCED TACHYCARDIA. SHE IS UNSURE WHICH ANESTHETIC SHE S ALLERGIC TO. IT MAY BE THAT SHE IS ALLERGIC TO THE TYPE THAT HAS EPINEPHRINE IN THEM. SOCIAL HISTORY: Indicates the patient is . She has worked at a variety of jobs and most recently at [employer]. 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 She is currently disabled from working. She is and is currently living with her son. She does smoke 6-7 cigarettes per day. She drinks occasional alcohol and it seems that when she drinks, she drinks a fair amount. She also smokes marijuana or uses marijuana in some form occasionally. FAMILY HISTORY: Remarkable for a father who at age 56 of an acute myocardial infarction. The patient was 11 years old at that time. The patient's mother at age 73 of pancreatic cancer. REVIEW OF SYSTEMS: HEENT is okay. Respiratory is okay with no history of asthma problems. Cardiovascular is okay. The patient does have a history of heart murmur but this has not been found to be hemodynamically significant. Gastrointestinal: Okay with no nausea, vomiting or diarrhea, hematemesis or melena. Genitourinary is okay with no major problems passing urine. Musculoskeletal: Remarkable for right upper arm pain, as noted above related to the fracture. She is not noticing any numbness in her hands. Neurologic has been okay with no major weakness or other problems, though she does have ongoing neck pain and balance problems related to her neck. Skin is remarkable for some bruises on the lower legs from falls. CODE STATUS: THE PATIENT WISHES TO BE A FULL CODE. PHYSICAL EXAMINATION: GENERAL: Reveals the patient to be a white female, appearing to be of her stated age. VITAL SIGNS: Temperature is 98. Pulse is 117. Blood pressure is 117/63. Oxygen saturation is 95%. She is alert and oriented x3 and answers questions fairly appropriately, though at times she speaks rather disconnectedly. HEENT: Head is normal. Ear canals and tympanic membranes are normal. Eyes show pupils equal, round, and reactive to light with normal extraocular movements. Fundi show no obvious hemorrhages or exudates. Nose and throat are clear. The patient does have some missing teeth. NECK: Supple without significant adenopathy. CHEST: Clear to auscultation and percussion. BREASTS: Show no masses. There is no axillary adenopathy. HEART: Reveals normal S1 and S2 with a grade 2/6 systolic murmur along the left sternal border. There is no diastolic murmur. ABDOMEN: Nontender, nondistended. Bowel tones are normal. There is no guarding. There is no organomegaly. PELVIC AND RECTAL: Not done. EXTREMITIES: Show the right upper arm to be immobilized in a posterior splint. This area iis quite painful when she attempts to move her arm much. SKIN: Okay except for some ecchymotic areas on the right lower leg just below the knee laterally and on the left anterior lower leg area. NEUROLOGIC: Reveals the patient to be alert and oriented x3. Cranial nerves are okay. Motor and sensory exams are generally intact. LAB/IMAGING: CT scan is normal with no evidence of intracranial bleeding or other abnormalities. X-rays of the right upper forearm show a transverse fracture of the mid shaft of the humerus with significant displacement and slight overlapping. There does seem to be a butterfly fragment. White blood cell count to be 17,300, hemoglobin is 11.2, hematocrit is 33. Sodium is 136, potassium 3.8, chloride 100, CO2 of 22, glucose 171, BUN 21, creatinine 0.7. Protime INR 0.9. PTT is 21. EKG shows a sinus tachycardia with no other acute abnormalities. There is some slight T-wave inversion in aVL. IMPRESSION: 1. The patient is presenting with a transverse displaced fracture of the mid shaft of the right humerus, which will require open reduction and internal fixation. This should be able to be done tomorrow. The patient also is showing alcohol intoxication and may have a history of alcohol abuse. 2. Other problems include adult-onset diabetes. 3. Questionable history of hypertension. 4. Questionable history of hyperlipidemia. 5. She also has chronic neck pain and some neurologic issues associated with this including balance difficulties. She shows evidence of mild anemia. PLAN: The patient is admitted and will be placed on intravenous fluids overnight and will remain n.p.o. She will have blood sugars done before meals and at bedtime and will have sliding scale administered as needed using the Humalog insulin. Additionally, she will have a chest x-ray done prior to surgery. Additionally she will also continue with hydromorphone intravenously for pain control. CBC and electrolytes will be checked in the morning prior to surgery. She also will have a chest x-ray done in the morning to make sure no significant abnormalities are present.
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
--- NOTE | 2016-09-19 05:24 | NUR ---
PT. IS AWAKE IN BED, REQUESTING PAIN MEDICATION FREQUENTLY. OK PER DR. SELLERS TO ADMINISTER PERCOCET PO WITH SIPS OF WATER. DILAUDID ADMINISTERED, PT. STATES IT IS SOMEWHAT EFFECTIVE BUT IF SHE MOVES VERY MUCH THEN HER PAIN BECOMES SEVERE AGAIN. PT. IS DROWSY, DOZES OFF WHILE TALKING. END TIDAL C02 MONITOR ON. TM.
--- NOTE | 2016-09-19 07:17 | DIAGNOSTIC IMAGING REPORT ---
PROCEDURE: XR CHEST 1 VIEW INDICATION: Preop right humeral fracture. TECHNIQUE: Portable AP view ([id number] hours). COMPARISON: Compared to chest x-ray and 12/11/2015. FINDINGS: Lungs are clear. Heart and mediastinum are normal. Thorax is normal. IMPRESSION: 1. Negative chest.
--- NOTE | 2016-09-19 07:45 | Progress Note ---
Subjective General Patient alert, sober this am. C/O moderate pain. Afeb WBC 7.3 Hgb 9.8 NMV intact and splint in place. Mild edema. Plan for repair today.
--- NOTE | 2016-09-19 07:47 | Preoperative Progress Note ---
Late Entry Date/Time Late Entry Date and Time LATE ENTRY Date of visit: Time of visit: Preop Note Details Current Status: Changes (Sober. I was able to explain ) Current Status Changes: I was able to explain the procedure to her this am and she would like to have the surgery done. Plan for repair of the fracture today. Physical Exam: No Changes Necessity: Still desired/necessary Other: CV Reviewed, Respiratory Reviewed, Review [facility] notes & Vitals
--- NOTE | 2016-09-19 08:14 | Progress Note ---
Subjective General Patient is feeling well this am. Pain improved with dilaudid. She denies other pain. She states that she tripped and fell. She states that she can do all her grocery shopping without stopping to rest. No chest pain, SOB, abd pain, nausea , or vomitting. No other pain. Physical Exam Vital Signs / I&Os Vital Signs Date Time Temp Pulse Resp B/P Pulse O2 O2 Flow FiO2 Ox Delivery Rate 09/19 0727 36.8 87 18 131/82 92 Room Air 0.0 09/19 0224 36.8 107 18 130/63 93 Room Air 09/18 2309 36.8 117 18 117/63 95 Room Air I&O 09/19 0000 09/18 1600 09/18 0800 Intake Total 450 Output Total Balance 450 General Appearance Alert, Cooperative, No acute distress Lungs Clear to auscultation, Normal air movement Cardiovascular Regular rate and rhythm, Normal S1 and S2, holosystolic murmur increased at the base. Abdomen Normal bowel sounds, Soft, No tenderness Extremities No edema, RUE with splint Assessment and Plan Problem List 1. Right humeral fracture Plan Ortho conulted. Per report, plan for surgery this afternoon. Cleared for surgery. ASA 2. 2. Diabetes Plan On ISS. Will add-on HgbA1C 3. Hypertension Plan Will call MD / pharmacy for name and dose of home medication. 4. Hypomagnesemia Plan Replacing 5. Alcohol abuse Plan Receiving banana bag today. On ETOH withdrawal protocol. 6. Anemia Plan Decreased today as compared to yesterday. Likely dilutional 2/2 IVF. Will repeat later this am.
--- NOTE | 2016-09-19 09:25 | NUR ---
RECEIVED PT IN BED, IN ROOM 202. ALERT, ORIENTED, COHERENT, COOPERATIVE. V/S TAKEN AND RECORDED. ASSESSMENT DONE. PT COMPLAINT OF CHEST AND BACK PAIN " SORE AND ACHE WHEN I COUGH" PT STATES. DENIES CHEST PRESSURE AT THIS TIME. PT TOLERATED HER MEALS GOOD. DAUGHTER WILL BRING PT'S OWN MEDICATION TODAY. KEPT PT WARM. H/H IS 8.2/ 24.4. DENIES DIZZINESS AT THIS TIME. " WHEN I GET UP, I FEEL A LITTLE WEAK" PT STATES.
[2016-09-19] MEDS ORDERED: LIPITOR80 MG PO (10:56)
[2016-09-19] MEDS ORDERED: CITALOPRAM HYDR40 MG PO (10:58)
[2016-09-19] MEDS ORDERED: ENALAPRIL MALE2.5 MG PO (10:59)
[2016-09-19] MEDS ORDERED: CYCLOBENZAPRINE10 MG PO (10:59)
[2016-09-19] MEDS ORDERED: METFORMIN HCL500 MG PO (11:00)
[2016-09-19] MEDS ORDERED: TRAMADOL HCL50 MG PO (11:01)
--- NOTE | 2016-09-19 14:45 | NUR ---
PT WENT TO SURGERY VIA [facility].
--- NOTE | 2016-09-19 16:01 | NUR ---
MULTIPLE RED/BLUE BRUISES OVER ENTIRE BODY. OF NOTE: LARGE ONE AROUND RIGHT KNEE LEFT ARM
--- NOTE | 2016-09-19 16:07 | NUR ---
sYNTHES 3.2mm GUIDE WIRE 400mm (503.000) x2 USED HUMERAL MARIKA IMPLANT.
--- NOTE | 2016-09-19 16:26 | Postoperative Progress Note ---
Postop Progress Note Preoperate Diagnosis: Fracture right humerus Postoperative Diagnosis: Same Surgeon: Socrates Hutchins MD Anesthesia: General ETT Findings: Unstable fracture right humerus Procedure: Percutaneous IM rodding of right huerus fracture Complications? No Condition: Stable EBL: 5cc Blood Administered: 0 Specimen(s) removed? No Grafts or Implants? Yes Graft/Implant type: Two 06/18" IM rods right humerus. . (See nursing notes for details of grafts/implants)
--- NOTE | 2016-09-19 16:55 | DIAGNOSTIC IMAGING REPORT ---
PROCEDURE: XR FLUOROSCOPY OVER 1 HOUR INDICATION: Surgery for right humerus fracture. TECHNIQUE: C-arm fluoroscopy was provided to Dr. Hutchins for intraoperative surgical procedure. Fluoroscopy time 4 minutes (20.1 mGy). AP and lateral C-arm views. COMPARISON: Comparison made to preoperative radiographs of the right humerus on 09/18/2016. FINDINGS: There has been reduction of a comminuted multipart fracture of the mid and proximal shaft of the right humerus which is transfixed with two intramedullary rods/pins. There is one fourth bone width of ventral displacement of the major distal fragment with a moderately displaced fragment near the midshaft. There is a nondisplaced comminuted fracture of the proximal shaft of the right humerus. IMPRESSION: 1. Open reduction and internal fixation of comminuted fracture of the mid and proximal shaft, right humerus with mild residual displacement of fracture fragments.
--- NOTE | 2016-09-19 16:59 | NUR ---
PT RECEIVED TO PACU SEDATED, EXCITED ON AROUSING AND SHIVERING MILDLY. SHIVERING RELIEVED WITH NEIDA HUGGER WARMER. REPORTS 8/10 PAIN ON AWAKENING, MEDICATED WITH FENTANYL IV FOR PAIN. DENIES NAUSEA. BP HIGH.
--- NOTE | 2016-09-19 17:30 | NUR ---
PT MORE AWAKE AND TALKATIVE. REQUIRES REMINDERS TO DEEP BREATHE AND COUGH. VSS, WITH BP HIGHER THAN DOCUMENTED BASELINE. NO URINE OUTPUT PER [facility] CATHETER IN PACU, ANESTHESIA PROVIDER NOTIFIED.
--- NOTE | 2016-09-19 17:42 | NUR ---
PT AWAKE AND MODERATELY COMFORTABLE. VSS.
--- NOTE | 2016-09-19 19:21 | NUR ---
PT ARRIVED AROUND 1830 VIA GURNEY FROM THE PACU. C/O PAIN IN RIGHT ARM AT 5/10 BUT KEPT FALLING ASLEEP. PT WAS NAUSEOUS WHEN MOVING TO BED, ANTI-EMETIC GIVEN AND PT IS FEELING MUCH BETTER PER PT. 1PERSON ASSIST WHEN AMBULATING. ARM DRESSINGS ARE C/D/I. SLING IS ON. VSS. NICOTINE PATCH ORDERED AND PLACED. RESTING W/ CALL LIGHT IN REACH.
--- NOTE | 2016-09-19 19:28 | OPERATIVE REPORT ---
DATE OF SURGERY: 09/19/2016 SURGEON: LOREN ROBLES MD PREOPERATIVE DIAGNOSIS: 1. Unstable comminuted fracture of the right humerus POSTOPERATIVE DIAGNOSIS: 1. Unstable comminuted fracture of the right humerus PROCEDURE PERFORMED: Operation proposed was repair of the right humeral fracture and the operation performed was a percutaneous intramedullary rodding of the right humeral fracture. CONDITION: She is in stable condition. ESTIMATED BLOOD LOSS: About 5 mL. COMPLICATIONS: None. PATHOLOGY SPECIMEN: Sent to the lab were none. SURGICAL TECHNIQUE: The patient was taken to the operating room. She was given general anesthetic. She was placed in a beach chair position on the operating table with the C-arm fluoroscopy device coming in from the opposite side and the arm was then prepped and draped in the usual sterile fashion. We made 2 small incisions proximally, anterior and posterior on the greater tuberosity of the humerus and through these and we put two 8 inch rods, bending the tip of the kaylie just a little bit and starting at the greater tuberosity, going through the intramedullary canal and with fluoroscopic visualization, we were able to line up the fracture adequately to pass the rods across the fracture site, doing the first one and then bearing it in the greater tuberosity of the humerus and then doing a second one and likewise bearing it so it was not protruding. This was accomplished without difficulty. The incisions were closed with #3-0 Vicryl subcuticular suture and they were dressed with Xeroform and sterile cotton gauze, which was taped securely in place. At the conclusion of the procedure the patient's major fracture fragments were nicely aligned and the fracture was stable. There is a butterfly fragment that is displaced, but because of the stability of the main fracture fragments and also because of my concerns about the patient's ability to cooperate and to care for her wound I would be most concerned about her having an open reduction of that fragment and repair of it and also she had fairly significant ecchymosis, at least 3+, over the area of the fracture site that had developed by the time we got to her today and there is a real concern about the wounds healing with her relatively poor health, diabetes and alcohol abuse and so this seemed the best compromise with the fracture stabilized. She did not tolerate well with the splint that we put on last night and it was not holding the fracture aligned well either and so this seemed the best compromise and with this the fracture is stable or at least the major fracture fragments are stable and aligned well. She is taken to the recovery room.
[2016-09-20] VITALS (12 sets, daily range): BP systolic 100–155; BP diastolic 56–99
--- NOTE | 2016-09-20 06:54 | NUR ---
R SHOULDER DRESSING CDI, SLING IN PLACED, STATES ABLE TO SLEEP AFTER LORAZEPAM.
--- NOTE | 2016-09-20 07:25 | Progress Note ---
Subjective General Patient with itching last night after surgery. Benadryl given with improvement. Still using dilaudid for pain however, more for her neck pain than her arm pain. No BM, nausea, abdominal pain. Taking po well per nursing. Physical Exam Vital Signs / I&Os Vital Signs Date Time Temp Pulse Resp B/P Pulse O2 O2 Flow FiO2 Ox Delivery Rate 09/20 0658 36.9 76 20 132/72 96 Nasal 2.0 Cannula 09/20 0225 37.6 88 13 119/71 98 Nasal 1.5 Cannula 09/20 0154 84 12 139/84 95 1.5 09/19 2257 94 16 95 1.5 09/19 2247 37.8 89 13 139/85 97 Nasal 1.5 Cannula 09/19 2105 102 13 111/57 96 Nasal 3.0 Cannula 09/19 2009 102 16 141/76 96 3.0 09/19 1945 36.9 105 16 141/76 96 Nasal 3.0 Cannula 09/19 1915 102 16 135/76 04 1850 89 16 135/78 96 Nasal 4.0 Cannula 09/19 1833 100 14 151/82 97 Nasal 4.0 Cannula 09/19 1816 102 14 150/86 95 Nasal 4.0 Cannula 09/19 1800 Nasal 3.0 Cannula 09/19 1758 36.8 94 11 140/74 93 Nasal 4.0 Cannula 09/19 1735 37.2 89 13 149/84 95 Nasal 4.0 Cannula 09/19 1730 94 13 148/80 92 Nasal 4.0 Cannula 09/19 1725 96 14 150/78 94 Nasal 4.0 Cannula 09/19 1720 98 14 161/80 94 Nasal 4.0 Cannula 09/19 1715 100 15 148/85 96 Mask 8.0 04/11 1710 96 15 163/78 98 Mask 8.0 04/11 1705 107 14 168/87 99 Mask 8.0 04/11 1700 100 12 164/101 100 Mask 8.0 04/11 1655 104 14 171/91 100 Mask 8.0 04/11 1650 103 16 172/91 94 Mask 8.0 04/ 1645 108 18 152/96 98 Mask 8.0 04/11 1640 101 16 178/100 96 Mask 8.0 04/ 1635 98 16 181/95 94 Mask 8.0 04/ 1630 99 15 173/86 93 Mask 8.0 09/19 1625 36.4 102 16 162/77 92 Mask 8.0 09/19 1430 36.9 84 10 139/99 94 09/19 1136 36.9 82 18 129/77 97 Room Air 0.0 09/19 1113 79 12 95 09/19 0925 Room Air 0.0 09/19 0818 16 93 09/19 0727 36.8 87 18 131/82 92 Room Air 0.0 I&O 09/20 0000 09/19 1600 09/19 0800 Intake Total 1702 1670 1071 Output Total 385 300 775 Balance 1317 1370 296 General Appearance Alert, No acute distress Lungs Clear to auscultation, Normal air movement Cardiovascular Regular rate and rhythm, Normal S1 and S2, No murmurs, gallops, rubs Abdomen Normal bowel sounds, Soft, No tenderness Extremities No edema, RUE in sling Assessment and Plan Problem List 1. Right humeral fracture Plan POD #1. Will attempt to transition from IV pain meds to po today. Ortho consulted. 2. Alcohol abuse Plan Scores increasing. Will continue to monitor. 3. Diabetes Plan On ISS. 4. Hypertension Plan Will restart home meds. 5. Hypomagnesemia Plan Replaced. 6. Anemia Plan Slight decrease after surgery yesterday.
--- NOTE | 2016-09-20 09:44 | Progress Note ---
Subjective General Moderate pain. Bandages are clean and dry, She has mild edema at the shoulder and fracture site. 2+ radial pulse. Fingers warm and pink. She has no active extension of the wrist and fingers. Sensation is present and unchanged in the 1st dorsal web space and throughout the hand distally. She has active flexion of the fingers and they are warm and pink. Compartments are all soft. Plan: Exploration of radial nerve to see if it is entrapped in the fracture site. The problem was explained to the patient and I recommended exploration of the nerve. She agrees and accepts. We will do the durgery later today.
--- NOTE | 2016-09-20 14:11 | NUR ---
PT LEFT FOR OR AT 1345, LEFT IN HER BED SO UNABLE TO CHANGE SHEETS WHILE SHE IS GONE
--- NOTE | 2016-09-20 15:27 | Postoperative Progress Note ---
Postop Progress Note Preoperate Diagnosis: Radial nerve palsy Postoperative Diagnosis: Same Surgeon: Socrates Hutchins MD Anesthesia: General ETT Findings: Radial nerve anterior to the major humeral shaft segments and between the burterfly fragment and the shaft of the humerus. Nerve was in continuity. Procedure: Exploration of the right radial nerve Complications? No Condition: Stable EBL: <50cc Blood Administered: 0 Specimen(s) removed? No Grafts or Implants? No . (See nursing notes for details of grafts/implants)
--- NOTE | 2016-09-20 15:42 | NUR ---
PT IS AWAKE AND ALERT. PT DENIES PAIN IN HER RIGHT ARM, BUT STATES CHRONIC NECK PAIN. VSS. RIGHT ARM IS ELEVATED ON A PILLOW, ARM IS IN ARM SLING. DRESSING IS CLEAN AND DRY. MD TALKED TO PT IN PACU. QUESTIONS ENCOURAGED AND ANSWERED.
--- NOTE | 2016-09-20 16:06 | OPERATIVE REPORT ---
DATE OF SURGERY: 09/20/2016 SURGEON: LOREN ROBLES MD PREOPERATIVE DIAGNOSES: 1. Radial nerve palsy 2. Right humeral fracture POSTOPERATIVE DIAGNOSES: 3. Radial nerve palsy 4. Right humeral fracture PROCEDURE PERFORMED: 1. The operation proposed was exploration of the right radial nerve, and the operation performed was exploration of the right radial nerve ESTIMATED BLOOD LOSS: Less than 50 mL. COMPLICATIONS: None. PATHOLOGY SPECIMEN: None. SURGICAL TECHNIQUE: The patient was taken to the operating room. She was given a general anesthetic. The arm and shoulder and base of neck were all prepped and draped in the usual sterile fashion. She then had a longitudinal incision made just lateral to the biceps muscle and carried down through subcutaneous tissue. The deep fascia was incised in line with its fibers, and we just bluntly dissected down to the bone. The patient's radial nerve was easily identified, and in fact it was anterior to the shaft of the humerus, and between the 2 major shaft fragments and the butterfly fragment that she had when she fractured the bone. The bone itself was nicely aligned. I just bluntly dissected free the butterfly fragment and removed it. The nerve itself was not kinked; it was not stretched; it was not under undue tension, and, while not in its anatomic position posterior to the radius, it was in position where there was no reason to think that it would not recover and, rather than take the fracture apart to move it posteriorly, back into its anatomic position, we just left it there. The patient had closure of the wound after irrigating with sterile saline. We used 2-0 Polysorb subcutaneous and then a running 3-0 Polysorb subcuticular skin closure. She was injected along the incision line with 0.5% Marcaine, about 10 mL. Dressed with Xeroform at both the shoulder incisions and also the arm incision, and ABDs were placed over the arm incision. She was wrapped with an Osbaldo bandage loosely applied, and at the shoulder 4 x 4 inch gauze placed over the incisions and then was taped securely in place. The incisions there actually were clean and dry and healing very nicely. There was no erythema, drainage or anything there and they looked good. The patient is being awakened. She will be taken to the recovery room. She is in stable condition.
--- NOTE | 2016-09-20 16:24 | NUR ---
PATIENT NOTIFIED AT 0800 THAT SHE WILL NPO AND HAVE ANOTHER SURGERY TODAY, BECAME AGGITATED AROUND 1100 STATING THAT SHE NEEDS TO EAT AND HAVE A CIGARETTE AND WANTS THE SURGERY ANOTHER DAY, OFFERED NICOTINE PATCH (SHE REFUSED THIS A.M.) AND SHE TOOK THE PATCH. PAIN MANAGED WELL WITH IV PAIN MEDICATION AND END TITAL C02 REMAINS WINL. ETOH SCORE 4, WCTM.
--- NOTE | 2016-09-20 16:27 | NUR ---
PT ARRIVED TO FLOOR FROM PACU AROUND 1550. WAFFLE IN PLACE ON BED. O2 AT 3 L SINCE PACU REPORT STATED PT WAS DESATING. CURRENTLY AT 2L SINCE SAT IS 99%. NO SOB. PT IS SPEAKING NONSENSICAL COMMENTS ABOUT [facility] AND "DESPERATELY WANTING PAIN MEDS" "TORTURE CHAMBER BECAUSE NO ONE IS GIVING PAIN MEDICATIONS HERE". PT BARELY ABLE TO OPEN EYES BUT CONTINUES TO TALK NONSENSICALLY. BP'S IN 150'S AND BOUNDING HEART SOUNDS. BT PRESENT. WCTM. LOWERED BED, IV FLUIDS RUNNING AND WILL ADMIN CEFAZOLIN WHEN BROUGHT BACK FROM PHARMACY SINCE WAS NOT GIVEN PRIOR TO SECOND SURGERY. SPOKE WITH PT ABOUT MARIJUANA USE PRIOR TO FALL STATED HAVING SATIVA AND INCA ROLLED CIGARETTE. ALSO HAD A WATER BOTTLE WITH OTIS. WCTM.
--- NOTE | 2016-09-20 17:39 | NUR ---
PT STATED UNABLE TO EAT DINNER WHILE IN BED. CURRENTLY SITTING IN CHAIR AND TOLERATING WELL. CONTIUES TO INCESSANTLY TALK NONSENSICALLY. HOLDING VITAL CHECKS TO AVOID CORDS ON ONLY WORKING ARM. WCTM STATUS CLOSELY.
--- NOTE | 2016-09-20 18:49 | NUR ---
PT IS CALMING DOWN AND ABLE TO COMMUNICATE BETTER. PAIN IS REMAINING 10/10 DESPITE MEDICATION.
--- NOTE | 2016-09-20 20:53 | NUR ---
REQUESTED PAIN MEDS FOR 10/10 NECK, R ARM CONSTANT/ACHING PAIN. ARTI SLING IN PLACED, DRESSINGS CDI.ON CAPNOGRAPHY SPO2 98%.
[2016-09-21 03:01] VITALS: BP 120/79
--- NOTE | 2016-09-21 04:47 | NUR ---
SLEEPING, RESPIRATIONS 16.
--- NOTE | 2016-09-21 05:00 | NUR ---
STATES R ARM PAIN BETTER, ONLY SHARP PAIN AT THIS TIME AT ELBOW AREA. REQUESTING PAIN MEDS. ARTI WARM TO TOUCH,POSITIVE SENSATION, CAP REFILL <3 SECS. DRESSINGS REMAINS CDI.
[2016-09-21 06:36] VITALS: BP 121/79
--- NOTE | 2016-09-21 07:31 | Progress Note ---
Subjective General VS Tmax 99.7 Still has mod pain. NMV unchanged. She has sensation in the radial nerve distribution but also still has a wrist drop. Bandages intact and clean and dry. DC home.
[2016-09-21] MEDS ORDERED: OXAYDO5 MG PO (07:35)
--- NOTE | 2016-09-21 07:36 | Provider's Discharge Care Plan ---
Problem, Goal, Plan Problem List 1. Right humeral fracture 2. Diabetes 3. Hypertension 4. Hypomagnesemia 5. Anemia
--- NOTE | 2016-09-21 07:36 | Provider's Discharge Care Plan ---
Problem, Goal, Plan Problem List 1. Right humeral fracture 2. Diabetes 3. Hypertension 4. Hypomagnesemia 5. Anemia
--- NOTE | 2016-09-21 07:59 | DISCHARGE SUMMARY ---
ADMIT DATE: 09/19/2016 DISCHARGE DATE: 09/21/2016 DISCHARGE DIAGNOSIS: 1. 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 BRIEF HISTORY: The patient probably suffered a fall. There is no clear understanding of exactly what happened to her, just know that she came to the emergency department, had a fracture of her humerus and multiple bruises. She had been drinking enough that she could not remember what exactly had happened and so she was admitted to the hospital. HOSPITAL COURSE: She was taken to surgery the next day where we did IM rodding of her right humerus. Postoperatively, she had a wrist drop and had sensation still in the radial nerve distribution, but no active extension of the wrist or MP joints of the fingers and was taken back to surgery on 09/20/2016 and had exploration of the radial nerve, which was found to be intact and just mildly contused at the level of the fracture site. It was between the butterfly fragment and the main shaft of the humerus and the butterfly fragment was just removed but the fracture was in stable near anatomic position and alignment. The nerve was not caught in the fracture and otherwise looked to be in good condition so postoperatively there was really no change in her functional status , but she was stable and afebrile and other than the chronic neck pain which she had had for a long time prior to her current admission. DISCHARGE INSTRUCTIONS/MEDICATIONS: There were no other complaints and she discharged home then in stable condition on 09/21/2016. The plans are for her to use the arm sling, to rest the arm, keep the incisions clean and dry. Ordered oxycodone that she can take for pain and she can take that 5 to 10 mg every 4 hours as needed for pain. She will return for followup in our office in about a week's time. Condition on discharge is stable. Prognosis is fair because of her alcoholism and multiple recurrent injuries and because of the radial nerve palsy.
--- NOTE | 2016-09-21 10:37 | DIAGNOSTIC IMAGING REPORT ---
PROCEDURE: XR CHEST 1 VIEW INDICATION: DESATTING ON ROOM AIR TECHNIQUE: Portable AP view 10:15 am COMPARISON: Chest 09/19/2016 and 12/11/2015 FINDINGS: Lungs are clear. Mild cardiomegaly. Thorax is normal. IMPRESSION: 1. Mild cardiomegaly.
[2016-09-21 11:12] VITALS: BP 131/79
--- NOTE | 2016-09-21 12:47 | Progress Note ---
Subjective General No chest pain or shortness of breath No abdominal pain nausea or vomiting sats 95% on room air at rest Physical Exam Vital Signs / I&Os Vital Signs Date Time Temp Pulse Resp B/P Pulse O2 O2 Flow FiO2 Ox Delivery Rate 09/21 1157 96 Nasal 1.0 Cannula 09/21 1112 98.8 50 20 131/79 96 Nasal 2.0 Cannula 09/21 0845 2.0 09/21 0636 99.0 83 22 121/79 98 Nasal 2.0 Cannula 09/21 0301 99.5 76 14 120/79 96 Nasal 2.0 Cannula 09/21 0116 88 16 95 2.0 09/20 2322 90 16 96 2.0 09/20 2229 99.7 51 12 130/85 100 Nasal 2.0 Cannula 09/20 2005 84 12 100/56 98 2.0 09/20 1810 98.2 92 16 100/56 100 Nasal 2.0 Cannula 09/20 1700 98.1 78 16 124/72 95 Room Air 09/20 1645 98.1 85 16 142/94 96 Room Air 09/20 1630 98.1 85 16 155/79 99 Nasal 2.0 Cannula 09/20 1615 98.2 84 16 153/89 99 Nasal 3.0 Cannula 09/20 1600 98.1 84 17 148/99 98 Nasal 2.0 Cannula 09/20 1550 2.0 09/20 1550 98.1 78 16 145/78 95 Nasal 4.0 Cannula 09/20 1545 92 17 149/84 95 Nasal 3.0 Cannula 09/20 1540 93 16 146/85 97 Nasal 3.0 Cannula 09/20 1535 94 17 142/85 95 Nasal 3.0 Cannula 09/20 1530 97.9 89 12 142/85 97 Nasal 3.0 Cannula I&O 09/21 0000 09/20 1600 09/20 0800 Intake Total 2209 700 1942 Output Total 300 400 750 Balance 8992 010 7482 General Appearance Alert, Oriented X3, Cooperative Lungs Clear to auscultation, no rales or wheezes Cardiovascular Regular rate and rhythm, Normal S1 and S2, No murmurs, gallops, rubs Abdomen Normal bowel sounds, Soft, No tenderness, No guarding Extremities right upper extremity in sling Neurological No lateralizing signs Assessment and Plan Problem List 1. Right humeral fracture Plan patien hemodynamically stable. sats 95 -98 % with rest and ambulation advised to quit smoking discharge per ortho resume home medications for diabetes and hypertension on discharge monitor hgb and hct post discharge 2. Diabetes 3. Hypertension 4. Anemia 5. Nicotine dependence
[2016-09-21 14:10] VITALS: BP 134/74
--- NOTE | 2016-09-21 16:36 | NUR ---
PT WAS AGGITATED AND PACING IN ROOM. REMOVED IV AROUND 161, WENT OVER ALL DOCUMENTS WITH PATIENT, ANSWERED QUESTIONS. TIGHTENED SLING AND SHOWED PT HOW TO DO IT HERSELF. 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 THIS RN LEFT ROOM TO CHECK ON ANOTHER PT AND YANELIS LEFT WITH SON WITHOUT STAFF MEMBER PRESENT. FACILITY TECH MET THEM IN HALLWAY.
[2016-09-21 18:00] VITALS: BP 144/77
== END 2016-09-21 16:30 | disposition home or self-care (01) | DRG 493 ==
LOC: ED SRH 19:58 → TRANS SRH 21:44 → ACUTE2 SRH 21:44
PROVIDERS: Orthopaedic Surgery; ADMIT Family Medicine
PROC: 0PSF06Z Reposition Right Humeral Shaft with Intramedullary Internal Fixation Device, Open Approach (ICD-10-PCS; principal; 2016-09-19 13:15)
PROC: 0PBF0ZZ Excision of Right Humeral Shaft, Open Approach (ICD-10-PCS; 2016-09-20)
DX: S42.321A Displaced transverse fracture of shaft of humerus, right arm, initial encounter for closed fracture (principal); W01.0XXA Fall on same level from slipping, tripping and stumbling without subsequent striking against object, initial encounter; Y93.01 Activity, walking, marching and hiking; G56.31 Lesion of radial nerve, right upper limb; G97.82 Other postprocedural complications and disorders of nervous system; F10.220 Alcohol dependence with intoxication, uncomplicated; Y90.6 Blood alcohol level of 120-199 mg/100 ml; Y92.009 Unspecified place in unspecified non-institutional (private) residence as the place of occurrence of the external cause; Y99.8 Other external cause status; E11.9 Type 2 diabetes mellitus without complications; M79.7 Fibromyalgia; E83.42 Hypomagnesemia; G89.29 Other chronic pain; M54.2 Cervicalgia; R27.0 Ataxia, unspecified; F17.210 Nicotine dependence, cigarettes, uncomplicated; Z79.84 Long term (current) use of oral hypoglycemic drugs

== ENCOUNTER 2016-09-25 14:00 | Emergency (ER) | payer OTHER ==
[~2016-09-25 14:00] MED LIST: CITALOPRAM HYDR40 MG PO; CYCLOBENZAPRINE10 MG PO; ENALAPRIL MALE2.5 MG PO; LIPITOR80 MG PO; METFORMIN HCL500 MG PO; OXAYDO5 MG PO; TRAMADOL HCL50 MG PO
--- NOTE | 2016-09-25 14:49 | ED ORDER SUMMARY ---
..... Patient: YANELIS CUNNINGHAM OrderSheet [facility] VisitID: [id number] [address] [place] [address] 61y, F Registration Date/Time: 09/25/2016 ORDER SHEET Weight: 76.2 kg (stated) Allergies: Demerol GENERAL ORDERS: MEDICATION ORDERS: - (oxycodone 10 mg po now) (14:26 09/25/2016 Kanika Acevedo) (14:44 Octavia Conde) IV FLUIDS: ORDER SHEET NOTES: [Electronically signed by Ana Tao P.A.-C (15:05 09/25/2016)] [Electronically signed by Lorin Cui R.N. (22:43 09/25/2016)] [Electronically locked/signed by Lorin Cui R.N. (22:43 09/25/2016)]
--- NOTE | 2016-09-25 14:49 | ED NURSING NOTES ---
Clinical Report - Nurses [facility] [address] [place] [address] 09/25/2016 14:01 Patient: YANELIS CUNNINGHAM TRIAGE Triage time 14:06. Acuity: LEVEL 4. Chief Complaint: RIGHT UPPER EXTREMITY PAIN. Alert. No acute distress. SEPSIS SCREEN: Sepsis Screen. Negative (no infection suspected/documented). TANIA COMA SCORE: Tania Coma Scale: 15- eyes open spontaneously (4); best verbal response- oriented x 4 (5); best motor response- obeys commands (6). --14:18 Lorin Cui R.N. 14:11 09/25/16. BP: 146/75. HR: 88. RR: 16. O2 saturation: 100%. Temp: 98.6 F. Pain level now 10/10. --14:18 Lorin Cui R.N. Weight: 76.2 kg stated. Height/Length: 64 inches Per Patient. BMI: 28.9. --14:12 Lorin Cui R.N. Medications OxyCODONE HCl Oral (states she took last 4 at 0400 and is now out. ). --14:15 Lorin Cui R.N. MetFORMIN HCl Oral (Tablet 500 mg) 1-1/2 tablets, 2x a day. --14:16 Lorin Cui R.N. Advil Oral. --14:16 Lorin Cui R.N. Tylenol Oral. --14:16 Lorin Cui R.N. Enalapril Maleate Oral (Tablet 5 mg) 1 tablet, daily. --14:16 Lorin Cui R.N. Allergies Demerol.(vomiting) --14:17 Lorin Cui R.N. Medication/allergy information source: the patient. --14:18 Lorin Cui R.N. History Arrived by private vehicle, and accompanied by friend. Primary physician (marvel). ( pt states she had shoulder surgery for humerus fracture (post fall) here on both sunday and sunday of last week. States she is having right elbow pain and continued right shoulder pain. She has run out of pain medications and feels her shoulder is not healing.). Injury occurred. This occurred (1 weeks ago). Occurred at home. Provoking / relieving factors: worsened by movement. 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 SOCIAL HX: Light tobacco smoker- less than 1/2 a pack per day. Occasional alcohol use. History of drug use: marijuana. FALL RISK ASSESSMENT: Fall risk assessment completed. No fall risk identified. NUTRITIONAL RISK ASSESSMENT: The nutritional risk assessment revealed no deficiencies. FUNCTIONAL ASSESSMENT: Functional assessment: no impairments noted. LEARNING NEEDS ASSESSMENT: The learning needs assessment revealed no barriers. SKIN INTEGRITY ASSESSMENT: Skin integrity risk assessment completed. No skin integrity risk identified. --14:18 Lorin Cui R.N. ( has follow up with surgeon ). --14:20 Lorin Cui R.N. PROBLEMS: Abnormal Liver Function Test. Contusion. Substance Abuse. Hypokalemia. Sinusitis. Rib Fracture. Fall. Foot Fracture. Near Syncope. Dental Caries. Arthritis. Gastroenteritis. Bronchitis. Bronchospasm. Dysuria. Palpitations. Psychosis. Immunizations. LNMP - Last Normal Menstrual Period. Anxiety Reaction. Dyspnea. Heart Murmur. Sleep Apnea. Hypertension. Fibromyalgia. Diabetes Mellitus. --14:17 Lorin Cui R.N. ADDITIONAL SURGERIES: Knee Surgery. Right shoulder surgery. Sinus Surgery. --14:17 Lorin Cui R.N. Interventions ID band on patient. To treatment room. --14:18 Lorin Cui R.N. PHYSICAL ASSESSMENT 14:19 09/25/16. Ambulatory to room. GENERAL / NEURO / PSYCH: Oriented X 4. (bizarre). EXTREMITIES: Neuro-vascular status intact to the extremity. ( 2+ swelling to right hand. Radial pulse present. CMS intact). SKIN: Skin is warm and dry. --14:19 Lorin Cui R.N. NURSING PROGRESS NOTES 14:20 09/25/16. The plan of care for this patient has been created. Call light placed in reach. Side rails up x 1. Bed placed in lowest position. Brakes of bed on. Patient ready for evaluation- chart flagged. --14:20 Lorin Cui R.N. 14:44 09/25/2016 Oxycodone PO Tablets 10 mg given. Allergies verified, confirmed 5 rights and sedative warning given to the patient. --14:44 Lorin Cui R.N. ( redressed pts. dressing on arm.). --14:57 Carmen Moreno, OBEY Tech1. DISPOSITION / DISCHARGE ( attempting to discharge pt. Daughter is no longer at bedside, pt states she thinks she went out to vehicle to sleep. Security sent out to locate daughter, waiting to perform discharge teaching until daughter is present). --15:13 Lorin Cui R.N. 15:17 09/25/16. Departure time: 1516. Condition at departure: unchanged and stable. Ability to learn limited by poor comprehension; teaching performed with the family. Learning barriers note: daughter staying with patient to care for her. instructions performed with daughter at bedside. Reviewed medication(s) side effects, precautions, dosing and course information. Prescription(s) given to the patient. Patient and family verbalized understanding. Written instructions provided in Danish. The patient was discharged by the physician talent acquisition assistant. She was discharged home and accompanied by daughter. She left the Emergency Department ambulatory and via private vehicle. Family member driving. --15:18 Lorin Cui R.N. 15:16 09/25/16. BP: 148/81. HR: 86. RR: 16. O2 saturation: 100% on room air. Pain level now 10/10. --15:18 Lorin Cui R.N. Locked/Released at 09/25/2016 22:43 by Lorin Cui R.N.
--- NOTE | 2016-09-25 14:49 | ED CLINICAL REPORT ---
Clinical Report - Physicians/Mid Levels [facility] [address] [place] [address] 09/25/2016 14:01 Patient: YANELIS CUNNINGHAM Time Seen: 14:33 Sep 25 2016. Arrived- By private vehicle. Historian- patient and family (daughter). HISTORY OF PRESENT ILLNESS Chief Complaint: Injury to the right arm. The injury happened 09/18. Occurred at home. Fell. ( Patient with a previous fracture seen in the emergency department, and was admitted to the hospital with an operation, on the tense initially. Patient reports pain. Out of her pain medication. Patient has not followed up or seen her orthopedic doctor. Reports at times difficulty with opening her hand.). REVIEW OF SYSTEMS No tingling. All systems otherwise negative, except as recorded above. PAST HISTORY The patient's dominant hand is the right. She has not had a prior injury to the same area. SOCIAL HISTORY Alcohol use. History of drug use: marijuana. ADDITIONAL NOTES The nursing notes have been reviewed. PHYSICAL EXAM Vital Signs: 09/25/2016 14:11 BP: 146/75. HR: 88. RR: 16. O2 saturation: 100%. Temp: 98.6 F. Head: Head atraumatic. CVS: Normal heart rate and rhythm. Heart sounds normal. Respiratory: No respiratory distress. Breath sounds normal. No decreased air movement or chest wall injury. Skin: Skin intact. Skin warm. Extremities: Right arm. (Incision over the lateral aspect of the arm, clean dry and intact. Good distal sensation, good warmth, good distal radial pulse. Good sensation of the deltoid area. Good range of motion of the elbow.). Right elbow. No tenderness or laceration. Right wrist. (good radial pulse). No tenderness or swelling. Neuro, Vascular and Tendons: Vascular deficit present. Motor deficit present. Neuro: Oriented X 3. PROGRESS AND PROCEDURES Course of Care: patient with no new shortness of breath. Patient with no new fevers. Good range of motion of the elbow. Good distal massage operator strength. No signs of radial palsy. No signs of infectious processes. Patient is stable. Patient/family counseled. Disposition: Discharged. CLINICAL IMPRESSION Fracture of the right humerus (Old (Sub-acute from the 10th)). INSTRUCTIONS Apply ice. Protect wound and keep wound area clean. Apply bacitracin twice daily. (FOLLOW UP WITH ORTHO as scheduled). Prescription Medications: Oxycodone 10 mg one po q 8 hours, #30. Follow-up with: [facility], , [address] , [place], [address] Follow up. Call for the next available appointment. (Electronically signed by Ana Tao P.A.-C 09/25/2016 15:05)
--- NOTE | 2016-09-25 14:49 | ED ORDER SUMMARY ---
..... Patient: YANELIS CUNNINGHAM OrderSheet [facility] VisitID: [id number] [address] [place] [address] 61y, F Registration Date/Time: 09/25/2016 ORDER SHEET Weight: 76.2 kg (stated) Allergies: Demerol GENERAL ORDERS: MEDICATION ORDERS: - (oxycodone 10 mg po now) (14:26 09/25/2016 Kanika Acevedo) (14:44 Octavia Coned) IV FLUIDS: ORDER SHEET NOTES: [Electronically signed by Ana Tao P.A.-C (15:05 09/25/2016)] [Electronically signed by Lorin Cui R.N. (22:43 09/25/2016)] [Electronically locked/signed by Lorin Cui R.N. (22:43 09/25/2016)]
--- NOTE | 2016-09-25 14:49 | ED NURSING NOTES ---
Clinical Report - Nurses [facility] [address] [place] [address] 09/25/2016 14:01 Patient: YANELIS CUNNINGHAM TRIAGE Triage time 14:06. Acuity: LEVEL 4. Chief Complaint: RIGHT UPPER EXTREMITY PAIN. Alert. No acute distress. SEPSIS SCREEN: Sepsis Screen. Negative (no infection suspected/documented). TANIA COMA SCORE: Tania Coma Scale: 15- eyes open spontaneously (4); best verbal response- oriented x 4 (5); best motor response- obeys commands (6). --14:18 Lorin Cui R.N. 14:11 09/25/16. BP: 146/75. HR: 88. RR: 16. O2 saturation: 100%. Temp: 98.6 F. Pain level now 10/10. --14:18 Lorin Cui R.N. Weight: 76.2 kg stated. Height/Length: 64 inches Per Patient. BMI: 28.9. --14:12 Lorin Cui R.N. Medications OxyCODONE HCl Oral (states she took last 4 at 0400 and is now out. ). --14:15 Lorin Cui R.N. MetFORMIN HCl Oral (Tablet 500 mg) 1-1/2 tablets, 2x a day. --14:16 Lorin Cui R.N. Advil Oral. --14:16 Lorin Cui R.N. Tylenol Oral. --14:16 Lorin Cui R.N. Enalapril Maleate Oral (Tablet 5 mg) 1 tablet, daily. --14:16 Lorin Cui R.N. Allergies Demerol.(vomiting) --14:17 Lorin Cui R.N. Medication/allergy information source: the patient. --14:18 Lorin Cui R.N. History Arrived by private vehicle, and accompanied by friend. Primary physician (marvel). ( pt states she had shoulder surgery for humerus fracture (post fall) here on both sunday and sunday of last week. States she is having right elbow pain and continued right shoulder pain. She has run out of pain medications and feels her shoulder is not healing.). Injury occurred. This occurred (1 weeks ago). Occurred at home. Provoking / relieving factors: worsened by movement. 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 SOCIAL HX: Light tobacco smoker- less than 1/2 a pack per day. Occasional alcohol use. History of drug use: marijuana. FALL RISK ASSESSMENT: Fall risk assessment completed. No fall risk identified. NUTRITIONAL RISK ASSESSMENT: The nutritional risk assessment revealed no deficiencies. FUNCTIONAL ASSESSMENT: Functional assessment: no impairments noted. LEARNING NEEDS ASSESSMENT: The learning needs assessment revealed no barriers. SKIN INTEGRITY ASSESSMENT: Skin integrity risk assessment completed. No skin integrity risk identified. --14:18 Lorin Cui R.N. ( has follow up with surgeon ). --14:20 Lorin Cui R.N. PROBLEMS: Abnormal Liver Function Test. Contusion. Substance Abuse. Hypokalemia. Sinusitis. Rib Fracture. Fall. Foot Fracture. Near Syncope. Dental Caries. Arthritis. Gastroenteritis. Bronchitis. Bronchospasm. Dysuria. Palpitations. Psychosis. Immunizations. LNMP - Last Normal Menstrual Period. Anxiety Reaction. Dyspnea. Heart Murmur. Sleep Apnea. Hypertension. Fibromyalgia. Diabetes Mellitus. --14:17 Lorin Cui R.N. ADDITIONAL SURGERIES: Knee Surgery. Right shoulder surgery. Sinus Surgery. --14:17 Lorin Cui R.N. Interventions ID band on patient. To treatment room. --14:18 Lorin Cui R.N. PHYSICAL ASSESSMENT 14:19 09/25/16. Ambulatory to room. GENERAL / NEURO / PSYCH: Oriented X 4. (bizarre). EXTREMITIES: Neuro-vascular status intact to the extremity. ( 2+ swelling to right hand. Radial pulse present. CMS intact). SKIN: Skin is warm and dry. --14:19 Lorin Cui R.N. NURSING PROGRESS NOTES 14:20 09/25/16. The plan of care for this patient has been created. Call light placed in reach. Side rails up x 1. Bed placed in lowest position. Brakes of bed on. Patient ready for evaluation- chart flagged. --14:20 Lorin Cui R.N. 14:44 09/25/2016 Oxycodone PO Tablets 10 mg given. Allergies verified, confirmed 5 rights and sedative warning given to the patient. --14:44 Lorin Cui R.N. ( redressed pts. dressing on arm.). --14:57 Carmen Moreno, OBEY Tech1. DISPOSITION / DISCHARGE ( attempting to discharge pt. Daughter is no longer at bedside, pt states she thinks she went out to vehicle to sleep. Security sent out to locate daughter, waiting to perform discharge teaching until daughter is present). --15:13 Lorin Cui R.N. 15:17 09/25/16. Departure time: 1516. Condition at departure: unchanged and stable. Ability to learn limited by poor comprehension; teaching performed with the family. Learning barriers note: daughter staying with patient to care for her. instructions performed with daughter at bedside. Reviewed medication(s) side effects, precautions, dosing and course information. Prescription(s) given to the patient. Patient and family verbalized understanding. Written instructions provided in Hebrew. The patient was discharged by the physician acute care assistant. She was discharged home and accompanied by daughter. She left the Emergency Department ambulatory and via private vehicle. Family member driving. --15:18 Lorin Cui R.N. 15:16 09/25/16. BP: 148/81. HR: 86. RR: 16. O2 saturation: 100% on room air. Pain level now 10/10. --15:18 Lorin Cui R.N. Locked/Released at 09/25/2016 22:43 by Lorin Cui R.N.
--- NOTE | 2016-09-25 14:49 | ED CLINICAL REPORT ---
Clinical Report - Physicians/Mid Levels [facility] [address] [place] [address] 09/25/2016 14:01 Patient: YANELIS CUNNINGHAM Time Seen: 14:33 Sep 25 2016. Arrived- By private vehicle. Historian- patient and family (daughter). HISTORY OF PRESENT ILLNESS Chief Complaint: Injury to the right arm. The injury happened 09/18. Occurred at home. Fell. ( Patient with a previous fracture seen in the emergency department, and was admitted to the hospital with an operation, on the tense initially. Patient reports pain. Out of her pain medication. Patient has not followed up or seen her orthopedic doctor. Reports at times difficulty with opening her hand.). REVIEW OF SYSTEMS No tingling. All systems otherwise negative, except as recorded above. PAST HISTORY The patient's dominant hand is the right. She has not had a prior injury to the same area. SOCIAL HISTORY Alcohol use. History of drug use: marijuana. ADDITIONAL NOTES The nursing notes have been reviewed. PHYSICAL EXAM Vital Signs: 09/25/2016 14:11 BP: 146/75. HR: 88. RR: 16. O2 saturation: 100%. Temp: 98.6 F. Head: Head atraumatic. CVS: Normal heart rate and rhythm. Heart sounds normal. Respiratory: No respiratory distress. Breath sounds normal. No decreased air movement or chest wall injury. Skin: Skin intact. Skin warm. Extremities: Right arm. (Incision over the lateral aspect of the arm, clean dry and intact. Good distal sensation, good warmth, good distal radial pulse. Good sensation of the deltoid area. Good range of motion of the elbow.). Right elbow. No tenderness or laceration. Right wrist. (good radial pulse). No tenderness or swelling. Neuro, Vascular and Tendons: Vascular deficit present. Motor deficit present. Neuro: Oriented X 3. PROGRESS AND PROCEDURES Course of Care: patient with no new shortness of breath. Patient with no new fevers. Good range of motion of the elbow. Good distal md allergy immunology strength. No signs of radial palsy. No signs of infectious processes. Patient is stable. Patient/family counseled. Disposition: Discharged. CLINICAL IMPRESSION Fracture of the right humerus (Old (Sub-acute from the 10th)). INSTRUCTIONS Apply ice. Protect wound and keep wound area clean. Apply bacitracin twice daily. (FOLLOW UP WITH ORTHO as scheduled). Prescription Medications: Oxycodone 10 mg one po q 8 hours, #30. Follow-up with: [facility], , [address] , [place], [address] Follow up. Call for the next available appointment. (Electronically signed by Ana Tao P.A.-C 09/25/2016 15:05)
--- NOTE | 2016-09-25 22:44 | ED MED RECONCILIATION SUMMARY ---
Patient: YANELIS CUNNINGHAM Medication Reconciliation Report [facility] VisitID: [id number] [address] [place] [address] 61y, F Registration Date/Time: 09/25/2016 Weight: 76.2 kg Height/Length: 64 in. BMI: 28.9 ALLERGIES: Demerol The patient's Home Medications are listed below: THE FOLLOWING MEDICATIONS NEED TO BE RECONCILED: Advil Oral Enalapril Maleate Oral (5 mg) 1 tablet, daily MetFORMIN HCl Oral (500 mg) 1-1/2 tablets, 2x a day OxyCODONE HCl Oral, states she took last 4 at 0400 and is now out. Tylenol Oral The source(s) of the original Home Medication information: patient The following Medications were given to the patient in the Emergency Department: Oxycodone [PO] PO 10 mg, administered: 09/25/2016 2:44:00 PM The following Medications were prescribed to the patient: Oxycodone 10 mg one po q 8 hours, #30. -- Ana Tao P.A.-C
--- NOTE | 2016-09-25 22:44 | ED DISCHARGE INSTRUCTIONS ---
Patient: YANELIS CUNNINGHAM General Instructions [facility] VisitID: [id number] [address] [place] [address] 61y, F Registration Date/Time: 09/25/2016 Fracture of the right humerus (Old (Sub-acute from the 10th)). INSTRUCTIONS Apply ice. Protect wound and keep wound area clean. Apply bacitracin twice daily. (FOLLOW UP WITH ORTHO as scheduled). Prescription Medications: Oxycodone 10 mg one po q 8 hours, #30. Follow-up with: [facility], , [address], [place], [id number] Follow up. Call for the next available appointment. ADDITIONAL INFORMATION Shoulder Fracture [Shoulder Immobilizer] You have a break (fracture) of the shoulder. This may be a small crack in the bone. Or it may be a major break with the broken parts pushed out of position. If there is only a crack in the bone and no bone fragments are out of place, a shoulder fracture is usually treated with a shoulder immobilizer. This is a special type of sling. (Casts are not used for this type of fracture.) Healing of the bone usually occurs in 4-6 weeks. More serious injuries may require surgery to put the bones back into the correct position for healing. Home Care: Leave the shoulder immobilizer in place. This will support the injured arm at your side. This is the best position for bone healing. The shoulder immobilizer is adjustable. If it becomes loose, adjust it so that your forearm is horizontal (level with the ground). Your hand should be level with the elbow. Apply an ice pack (ice cubes in a plastic bag, wrapped in a towel) over the injured area for 20 minutes every 1-2 hours the first day. Continue with ice packs 3-4 times a day for the next two days, then as needed for the relief of pain and swelling. You may use acetaminophen (Tylenol) or ibuprofen (Motrin, Advil) to control pain, unless another pain medicine was prescribed. (NOTE : If you have chronic liver or kidney disease or ever had a stomach ulcer or GI bleeding, talk with your doctor before using these medicines.) Do not remove the sling before your next exam unless you were instructed to do so. Follow Up with your doctor in one week, or as advised by our staff, to be sure the bone is healing properly. A shoulder joint will become stiff if left in a sling for too long. Ask your doctor when it is safe to begin [id number] exercises. Get Prompt Medical Attention if any of the following occur: Fingers become swollen, cold, blue, numb or tingly Large amount of swelling or bruising of the shoulder or upper arm Increasing shoulder pain or arm swelling You have been given the following additional information: Fracture, Shoulder (Electronically signed by Ana Tao P.A.-C 09/25/2016 15:05)
--- NOTE | 2016-09-25 22:44 | ED MAR SUMMARY ---
..... Medication Administration Record [facility] [address] [place] [address] Patient: YANELIS CUNNINGHAM Visit ID: [id number] 61y, F Weight: 76.2 kg Height/Length: 64 in BMI: 28.9 ALLERGIES: Demerol Given 14:44 09/25/2016 Lorin Cui RCharlie Medication Administered: OXYCODONE [PO], Dose: 10 mg Tablets PO. Medication Ordered: - (oxycodone 10 mg po now).
--- NOTE | 2016-09-25 22:44 | ED MAR SUMMARY ---
..... Medication Administration Record [facility] [address] [place] [address] Patient: YANELIS CUNNINGHAM Visit ID: [id number] 61y, F Weight: 76.2 kg Height/Length: 64 in BMI: 28.9 ALLERGIES: Demerol Given 14:44 09/25/2016 Lorin Cui RCharlie Medication Administered: OXYCODONE [PO], Dose: 10 mg Tablets PO. Medication Ordered: - (oxycodone 10 mg po now).
--- NOTE | 2016-09-25 22:44 | ED DISCHARGE INSTRUCTIONS ---
Patient: YANELIS CUNNINGHAM General Instructions [facility] VisitID: [id number] [address] [place] [address] 61y, F Registration Date/Time: 09/25/2016 Fracture of the right humerus (Old (Sub-acute from the 10th)). INSTRUCTIONS Apply ice. Protect wound and keep wound area clean. Apply bacitracin twice daily. (FOLLOW UP WITH ORTHO as scheduled). Prescription Medications: Oxycodone 10 mg one po q 8 hours, #30. Follow-up with: [facility], , [address], [place], [address] Follow up. Call for the next available appointment. ADDITIONAL INFORMATION Shoulder Fracture [Shoulder Immobilizer] You have a break (fracture) of the shoulder. This may be a small crack in the bone. Or it may be a major break with the broken parts pushed out of position. If there is only a crack in the bone and no bone fragments are out of place, a shoulder fracture is usually treated with a shoulder immobilizer. This is a special type of sling. (Casts are not used for this type of fracture.) Healing of the bone usually occurs in 4-6 weeks. More serious injuries may require surgery to put the bones back into the correct position for healing. Home Care: Leave the shoulder immobilizer in place. This will support the injured arm at your side. This is the best position for bone healing. The shoulder immobilizer is adjustable. If it becomes loose, adjust it so that your forearm is horizontal (level with the ground). Your hand should be level with the elbow. Apply an ice pack (ice cubes in a plastic bag, wrapped in a towel) over the injured area for 20 minutes every 1-2 hours the first day. Continue with ice packs 3-4 times a day for the next two days, then as needed for the relief of pain and swelling. You may use acetaminophen (Tylenol) or ibuprofen (Motrin, Advil) to control pain, unless another pain medicine was prescribed. (NOTE : If you have chronic liver or kidney disease or ever had a stomach ulcer or GI bleeding, talk with your doctor before using these medicines.) Do not remove the sling before your next exam unless you were instructed to do so. Follow Up with your doctor in one week, or as advised by our staff, to be sure the bone is healing properly. A shoulder joint will become stiff if left in a sling for too long. Ask your doctor when it is safe to begin [id number] exercises. Get Prompt Medical Attention if any of the following occur: Fingers become swollen, cold, blue, numb or tingly Large amount of swelling or bruising of the shoulder or upper arm Increasing shoulder pain or arm swelling You have been given the following additional information: Fracture, Shoulder (Electronically signed by nAa Tao P.A.-C 09/25/2016 15:05)
--- NOTE | 2016-09-25 22:44 | ED MED RECONCILIATION SUMMARY ---
Patient: YANELIS CUNNINGHAM Medication Reconciliation Report [facility] VisitID: [id number] [address] [place] [address] 61y, F Registration Date/Time: 09/25/2016 Weight: 76.2 kg Height/Length: 64 in. BMI: 28.9 ALLERGIES: Demerol The patient's Home Medications are listed below: THE FOLLOWING MEDICATIONS NEED TO BE RECONCILED: Advil Oral Enalapril Maleate Oral (5 mg) 1 tablet, daily MetFORMIN HCl Oral (500 mg) 1-1/2 tablets, 2x a day OxyCODONE HCl Oral, states she took last 4 at 0400 and is now out. Tylenol Oral The source(s) of the original Home Medication information: patient The following Medications were given to the patient in the Emergency Department: Oxycodone [PO] PO 10 mg, administered: 09/25/2016 2:44:00 PM The following Medications were prescribed to the patient: Oxycodone 10 mg one po q 8 hours, #30. -- Ana Tao P.A.-C
== END 2016-09-25 15:16 | disposition home or self-care (01) ==
LOC: ED SRH 14:00
DX: S42.201D Unspecified fracture of upper end of right humerus, subsequent encounter for fracture with routine healing (principal); Z79.84 Long term (current) use of oral hypoglycemic drugs; W19.XXXA Unspecified fall, initial encounter; Y93.9 Activity, unspecified; Y92.009 Unspecified place in unspecified non-institutional (private) residence as the place of occurrence of the external cause; Y99.9 Unspecified external cause status; F17.210 Nicotine dependence, cigarettes, uncomplicated; E11.9 Type 2 diabetes mellitus without complications; I10 Essential (primary) hypertension; F12.10 Cannabis abuse, uncomplicated